=== PATIENT | female | born 1930 | race Caucasian/White ===

== ENCOUNTER 2017-05-20 15:07 | Inpatient (IN) | payer MEDICARE, BC ==
[~2017-05-20] VITALS: Ht 152.4 cm; Wt 59.0 kg
[~2017-05-20 15:07] MED LIST: ALBU8.5H6 IH; ALEN70TA3 PO; AMLO10TA4 PO; ASPI-630 PO; CALC500T30 PO; CEFU500T46 PO; COMBIGAN EYE EACHEYE; CRAN200C2 PO; FISH1CAP PO; FLUT12AE IH; GLUC1TAB71 PO; MULT-208 PO; OMEP40CA5 PO; SALM50DI IH; SERVENT; TIOT18CA IH; TRAM50TA PO; VIT1TABL32 PO; VITA1TAB PO; vitamin e PO
[2017-05-20] MEDS ORDERED: NITROGLYCERIN SUBLINGUAL 0.4 MG BOTTLE OF 25. SL PRN ×2 (15:15→17:00)
--- NOTE | 2017-05-20 15:26 | PHYS DOC ---
General Chief Complaint: CHEST PAIN Stated Complaint: C.P., SOA Time Seen by MD: 15:14 Source: patient, EMS, [facility] records Exam Limitations: clinical condition Problems: History of Present Illness Initial Comments Patient is an 86-year-old female sent to the emergency department via EMS from [facility] for respiratory distress. [facility] staff called to advise ED staff that the patient was in route, they state that 30 minutes prior to calling EMS the patient desatted acutely to 88% on RA, improved to 93% 6L NC. Patient had severe dyspnea on arrival and history obtained once she was stabilized. She reports that she's had a worsening cough and dyspnea on exertion for the past 2 days, she states that prior to coming in today she was sitting on the edge of her bed putting her pants on when she experienced sudden onset severe dyspnea with chest discomfort. She denies any recent fever chills or productive cough she does admit that her lower extremity edema has worsened the past couple of days as well. No nausea vomiting diaphoresis no arm or neck symptoms no lightheadedness or dizziness. Patient has DNR Timing/Duration: 1/2 hour Severity: severe Modifying Factors: worse with movement, improves with rest, improves with other Associated Symptoms: chest pain, cough, shortness of breath Allergies: Coded Allergies: No Known Allergies (Unverified Allergy, Unknown, 06/24/14) Past Medical History Medical History: COPD, hypertension, other (chronic pain, generalized weakness , osteoporosis, GERD, anxiety, glaucoma, UTI, hypokalemia, difficulty walking, respiratory distress O2 dependent) Surgical History: noncontributory Family History Significant Family History: no pertinent family hx Social History Smoker: quit greater than 1 year (patient states she smoked one pack daily for 35 years, states she quit smoking 35 years ago) Alcohol: none Drugs: none Review of Systems Constitutional: denies chills, denies diaphoresis, denies fever, malaise Respiratory: see HPI Cardiovascular: see HPI, chest pain, denies palpitations, denies syncope Gastrointestinal: denies abdominal pain, denies diarrhea, denies nausea, denies vomiting Genitourinary: denies dysuria, denies frequency, denies hematuria Musculoskeletal: see HPI, muscle pain, muscle stiffness, denies neck pain Psychiatric/Neurological: denies headache, denies numbness, denies paresthesia Hematologic/Lymphatic: denies blood clots, denies easy bleeding, denies easy bruising Physical Exam General Appearance: WD/WN, moderate distress Ear, Nose, Throat: hearing grossly normal, normal ENT inspection, normal pharynx Neck: non-tender, full range of motion, supple Respiratory: chest non-tender, other (globally decreased breath sounds with wheezes, accessory muscle use and respiratory distress) Cardiovascular: normal peripheral pulses, regular rate, rhythm, other (2+ pitting lower extremity edema involving the lower legs) Gastrointestinal: normal bowel sounds, non tender, soft Back: normal inspection, no CVA tenderness, no vertebral tenderness Extremities: normal range of motion, non-tender, no calf tenderness, pelvis stable Neurologic/Psychiatric: 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 Repeat EKG once patient stabilized. Interpreted by Dr. Marshall. PATIENT: ELAINE BELCHER ACCOUNT: [id number] : 1930 LOCATION: ER AGE: 86 SEX: F EXAM STATUS: REG ER ORD. PHYSICIAN: DOMINICK MARSHALL DO REASON: respiratory distress PROCEDURE: PORTABLE CHEST 1V Portable AP sitting view CXR: Clinical indications: Respiratory distress. Comparison: March 27, 2010 Findings: Old granulomatous disease is seen. No acute lung infiltrate or pleural effusion or pulmonary edema or lung mass or pneumothorax is seen. A hiatal hernia is evident. The heart size, pulmonary vasculature, mediastinum and both corina are otherwise unremarkable. Impression: No acute radiographic abnormality is seen. DICTATED AND SIGNED BY: SABINO MORSE MD DATE: 05/20/17 154 CC: MARIAN SHETH MD; DOMINICK MARSHALL DO ~ ABG: PH 7.42, PCO2 39.2, PO2 58, oxygen saturation 90% on 5 L O2 nasal cannula ED labs are unremarkable, no urine submitted yet and the studies remain pending. Although patient's O2 sat and ABG are fairly unremarkable the patient continues to work hard with labored breathing and I fear she may get tired and decompensated. Her condition improves with nonrebreather respiration rate improves from mid 30s to 18, oxygen saturation improves to 98-99%. In addition O2 patient did receive Solu-Medrol 125 mg IV and Lasix 20 mg IV shortly after arrival, she refused aspirin by mouth. Once stabilized low-dose morphine 2 mg sequential when necessary dosing initiated. 1645: Patient follows with Dr. Sheth is her PCP. I discussed the patient with emergency management consultant hospitalist Dr. Boucher. After thorough discussion of patient's history, presentation, ED results and course he is agreeable that patient should be admitted to the ICU as an inpatient for further respiratory support, to follow her labs, and control her symptoms. Patient is agreeable. Impressions: Respiratory distress COPD exacerbation Chest pain Hypovolemia Departure Time of Disposition: 16:57 Disposition: 09 ADMITTED INPATIENT Diagnosis: respiratory distress, COPD exacerbation, chest calos Condition: IMPROVED Additional Instructions: ICU admission Dr. Boucher is accepting DOMINICK MARSHALL DO May 20, 2017 15:26
[2017-05-20] MEDS ORDERED: ASPIRIN 81 MG TAB.CHEW PO ONE (15:30)
[2017-05-20] MEDS ORDERED: IPRATRPIUM/ALBUTEROL 0.5/2.5MG 3 ML NEBU. NEB ONE (15:30)
[2017-05-20] MEDS ORDERED: methylPREDNISolone SOD SUCC PF 125 MG/2 ML VIAL. IV ONE (15:30)
--- NOTE | 2017-05-20 15:45 | RAD ---
Portable AP sitting view CXR: Clinical indications: Respiratory distress. Comparison: March 27, 2010 Findings: Old granulomatous disease is seen. No acute lung infiltrate or pleural effusion or pulmonary edema or lung mass or pneumothorax is seen. A hiatal hernia is evident. The heart size, pulmonary vasculature, mediastinum and both corina are otherwise unremarkable. Impression: No acute radiographic abnormality is seen.
[2017-05-20 16:00] LABS: BASO # 0.1 x10^3/uL (0.0-0.2); BASO % 1 % (0-3); EOS # 0.1 x10^3/uL (0.0-0.7); EOS % 1 % (0-3); HEMATOCRIT 40.9 % (36.0-47.0); LYMPH # 2.6 x10^3/uL (1.0-4.8); LYMPH % 25 % (24-48); MEAN CORPUSCULAR HEMOGLOBIN 32 pg (25-35); MEAN CORPUSCULAR HGB CONC 34 g/dL (31-37); MEAN CORPUSCULAR VOLUME 92 fL (79-100); MONO # 0.8 x10^3/uL (0.0-1.1); MONO % 8 % (0-9); NEUT # 6.9 x10^3uL (1.8-7.7); NEUT % 66 % (31-73); PLATELET COUNT 240 x10^3/uL (140-400); RED BLOOD COUNT 4.45 x10^6/uL (3.50-5.40); RED CELL DISTRIBUTION WIDTH 14.6 % (11.5-14.5); WHITE BLOOD COUNT 10.6 x10^3/uL (4.0-11.0)
[2017-05-20 16:01] LABS: BGAS PH 7.42 (7.35-7.45)
[2017-05-20] MEDS ORDERED: FUROSEMIDE 40 MG/4 ML VIAL IVP ONE (16:15)
[2017-05-20 16:17] LABS: CALCIUM 9.3 mg/dL (8.5-10.1); CREATININE 0.6 mg/dL (0.6-1.0); POTASSIUM 4.2 mmol/L (3.5-5.1); TOTAL BILIRUBIN 0.7 mg/dL (0.2-1.0)
[2017-05-20] MEDS ORDERED: MORPHINE SULFATE 2 MG/ML DISP.SYRIN. IV/SQ PRN (16:30)
[2017-05-20] MEDS ORDERED: ACETAMINOPHEN 325 MG TABLET PO PRN (17:00)
[2017-05-20] MEDS ORDERED: MORPHINE SULFATE 2 MG/ML DISP.SYRIN. IV PRN (17:00)
[2017-05-20] MEDS ORDERED: ONDANSETRON PF 4 MG/2 ML VIAL. IV PRN (17:00)
[2017-05-20 19:00] VITALS: BP 114/77
--- NOTE | 2017-05-20 19:15 | NUR ---
Pt admitted from ER via EMS for Exac COPD. Pt presents A&O, denies complaints of pain. Family at beside. Pt currently on 10L NRB facemask, sats 99%. Pt still experiencing moderate SOA, from exertion of transferring. Oriented pt to unit, nurse, call light, and plan of care. V/U stated. Will monitor pt closely.
[2017-05-20] MEDS: IPRATRPIUM/ALBUTEROL 0.5/2.5MG 3 ML NEBU. NEB SCH (20:48)
--- NOTE | 2017-05-20 21:05 | EKG ---
[address] [address] Test Date: 2017-05-20 Test Time: 15:15:40 Pat Name: ELAINE BELCHER Department: Room: [facility] 1 Gender: F Senior Project Accountant: GUERO : 1930 Requested By: DOMINICK MARSHALL Order Number: [id number] Reading MD: Carlos Manuel Kuhn MD Measurements Intervals [place] Rate: 72 P: ND: QRS: 21 QRSD: 94 T: -24 QT: 384 QTc: 422 Interpretive Statements SR Electronically Signed On 05-23-2017 10:56:45 SALMON GILLNET VESSEL OPERATOR by Carlos Manuel Kuhn MD
[2017-05-20 21:30] VITALS: BP 113/66
[2017-05-20 23:41] VITALS: BP 142/66
[2017-05-21] VITALS (20 sets, daily range): BP systolic 119–152; BP diastolic 55–102
[2017-05-21 04:28] LABS: BASO % 0 % (0-3); EOS % 0 % (0-3); HEMATOCRIT 39.3 % (36.0-47.0); HEMOGLOBIN 13.5 g/dL (12.0-15.5); LYMPH # 1.6 x10^3/uL (1.0-4.8); LYMPH % 21 % (24-48); MEAN CORPUSCULAR HEMOGLOBIN 32 pg (25-35); MEAN CORPUSCULAR HGB CONC 34 g/dL (31-37); MEAN CORPUSCULAR VOLUME 93 fL (79-100); MONO # 0.2 x10^3/uL (0.0-1.1); MONO % 3 % (0-9); NEUT # 5.8 x10^3uL (1.8-7.7); NEUT % 76 % (31-73); PLATELET COUNT 198 x10^3/uL (140-400); RED BLOOD COUNT 4.25 x10^6/uL (3.50-5.40); RED CELL DISTRIBUTION WIDTH 13.8 % (11.5-14.5); WHITE BLOOD COUNT 7.6 x10^3/uL (4.0-11.0)
[2017-05-21 04:30] LABS: CALCIUM 9.1 mg/dL (8.5-10.1); CREATININE 0.7 mg/dL (0.6-1.0); GFR 79.5; POTASSIUM 4.2 mmol/L (3.5-5.1)
[2017-05-21] MEDS: IPRATRPIUM/ALBUTEROL 0.5/2.5MG 3 ML NEBU. NEB SCH ×4 (05:45→20:48)
[2017-05-21] MEDS: methylPREDNISolone SOD SUCC PF 125 MG/2 ML VIAL. IV SCH ×4 (05:49→20:51)
[2017-05-21] MEDS: IV NORMAL SALINE 1,000ML 1,000 ML IV SCH ×3 (05:50→20:52)
[2017-05-21] MEDS ORDERED: NON FORMULARY ITEM (Cranberry Extract (Cranberry) 200 MG) PO SCH (09:00)
[2017-05-21] MEDS: ASPIRIN 81 MG TAB.CHEW PO SCH (09:07)
[2017-05-21] MEDS: GLUCOSAMINE 500 MG CAPSULE PO SCH (09:08)
[2017-05-21] MEDS: PANTOPRAZOLE 40 MG TABLET. PO SCH (09:08)
[2017-05-21] MEDS: MULTIVITAMIN with MINERAL TABLET. PO SCH (09:08)
[2017-05-21] MEDS: CALCIUM CARBONATE 500 MG TABLET PO SCH (09:08)
[2017-05-21] MEDS: amLODIPine BESYLATE 10 MG TABLET PO SCH (09:09)
[2017-05-21] MEDS: traMADol 50 MG TABLET PO PRN ×2 (11:19→23:05)
[2017-05-21] MEDS ORDERED: IOHEXOL 300 MG/ML 75 ML VIAL. IV ONE (14:00)
[2017-05-21 14:11] LABS: BILIRUBIN,URINE NEG (NEG); CLARITY,URINE TURBID; COLOR,URINE YELLOW; GLUCOSE,URINE NEG (NEG); NITRITE,URINE POS (NEG); UROBILINOGEN,URINE 0.2 mg/dL (0.2 mg/dL)
[2017-05-21 14:12] LABS: BACTERIA,URINE MANY /HPF (0-FEW); SQUAMOUS EPITHELIAL CELL,UR FEW /LPF
--- NOTE | 2017-05-21 14:28 | HP ---
ADMIT DATE: 05/20/2017 HISTORY OF PRESENT ILLNESS: This is an 86-year-old female patient who is a resident at [facility] who was brought to the Emergency Room by emergency medical services for acute respiratory distress. Apparently, the patient has been complaining of worsening cough and dyspnea on exertion for the past 2 days. Nursing staff at the facility stated that her oxygen saturation dropped to 88% on room air and improved to 93% on 6 liters of oxygen by nasal cannula. By the time she arrived to the Emergency Room, she has severe dyspnea on arrival and the history was only obtained after she was stabilized. She reports that prior to coming to the Emergency Room, she was sitting on the edge of the bed, putting her pants on when she experienced sudden onset of severe dyspnea with chest discomfort. She denied any recent fever, chills or productive cough, but admits that her lower extremity edema has worsened in the last couple of days as well. No nausea, vomiting, diaphoresis. No arm or neck pain, no lightheadedness or dizziness. She was evaluated in the Emergency Room and was admitted with acute hypoxic respiratory failure, COPD exacerbation and was started on IV Solu-Medrol and was continued on her nebulized albuterol and Atrovent as well as her pain medication. Her white cell count was normal with no evidence of leukocytosis. She was afebrile. Her kidney function was unremarkable and her chest x-ray showed old granulomatous disease seen, no acute lung infiltrate, pleural effusion, no pulmonary edema, lung masses or pneumothorax seen; hiatal hernia is evident, heart size, pulmonary vasculature, mediastinal and both corina are otherwise unremarkable. No acute radiographic abnormalities seen. PAST MEDICAL HISTORY: Significant for chronic obstructive pulmonary disease, hypertension, generalized osteoarthritis, osteoporosis, as well as glaucoma. She has history of falls with right clavicular fracture treated conservatively with a sling. PAST SURGICAL HISTORY: Significant for bilateral cataract extraction, tonsillectomy, left mastectomy, total abdominal hysterectomy and bilateral salpingo-oophorectomy. ALLERGIES: She has no known drug allergies. MEDICATIONS: She is currently on the following medications: Alendronate sodium 70 mg once a week, amlodipine besylate 10 mg once a day, aspirin 81 mg once a day, calcium carbonate 500 mg daily, cranberry extract 200 mg daily, glucosamine, vitamin D and boswellia for Osteo Bi-Flex 1 tablet once a day, multivitamin 1 tablet once a day, omeprazole 40 mg once a day, salmeterol Xinafoate, Serevent Diskus 1 inhalation once a day, Spiriva HandiHaler 1 inhalation once a day and tramadol 50 mg every 4 hours as needed. FAMILY HISTORY: The patient has 3 sisters, one sister had coronary artery disease and she is morbidly obese, one sister underwent knee and hip replacement. The younger sister is seemingly healthy. Her father in his 70s and mother in her 60s due to uterine cancer. SOCIAL HISTORY: She is . She has 1 daughter and 2 sons. She is currently living with her daughter. She goes to [place] in wintertime. She lives actually with her sister there in a trailer park and comes back usually at the end of November and lives here with her daughter. She is an ex-smoker, quit in 1981. She smoked for 35 years, 1 pack a day. She does not drink alcohol. She worked for [employer] for 33 years. REVIEW OF SYSTEMS: The patient denied any blurring of vision. She had bilateral cataract extractions and has glaucoma; however, she denied any earache, tinnitus or sensorineural deafness. Denied any nosebleeds, stuffy nose or postnasal drip. Denied any sore throat, sore tongue, toothache, hoarseness of voice or difficulty swallowing. She denied any nausea, vomiting, diarrhea or constipation. Denied any hematemesis, melena or hematochezia. Denied any dysuria, frequency or hematuria. Denied any chest pain. Did complain of shortness of breath, cough, which is mostly dry as well as acute onset back pain. PHYSICAL EXAMINATION: GENERAL: On examining her, she looked well after she arrived to the ICU; however, she was definitely tachypneic, hypoxic and required 6 liters of oxygen to maintain her oxygen saturation above 90. She was pale, somewhat cachectic, but no jaundice, cyanosis or thyromegaly. No jugular venous distension. No lower limb edema. VITAL SIGNS: Her heart rate was 70, blood pressure of 145/85, temperature was 99.3, respiratory rate 26, and oxygen saturation was 94% in fact it was 89% on 4 liters of oxygen and required 6 liters to improve it more than 90. HEAD, EYES, EARS, NOSE AND THROAT: Showed normocephalic, atraumatic. NECK: Supple. HEART: Showed normal first and second heart sounds with no gallop, rub or murmur. CHEST: Clear to auscultation. No crepitation or rhonchi. ABDOMEN: Distended, soft, nontender. No guarding or rigidity. No organomegaly. All hernial orifices are intact. Bowel sounds normal. NEUROLOGIC: She was awake, alert, responding appropriately. All cranial nerves are intact. EXTREMITIES: She moves extremities without difficulty. She does have problems sitting up from a lying position that aggravates the pain. LABORATORY DATA: On arrival to the Emergency Room showed a white cell count of 10,600, hemoglobin 14, hematocrit 41, MCV 92, and platelet count 240,000 with a manual differential showed 66% polymorphs, 25% lymphocytes and 8% monocytes. Her chemistry showed a serum sodium 137, potassium 4.2, chloride 100, bicarbonate 29, anion gap of 8, BUN 20, creatinine was 0.6, estimated GFR was 95 mL per minute. Her glucose 113, calcium was 9.3. Total bilirubin, AST, ALT, alkaline phosphatase were normal. Her beta natriuretic peptide was 130. Total protein 8, albumin 4. Her first set of cardiac enzymes showed troponin to be less than 0.017. Her blood gases showed a pH of 7.42, pCO2 of 39, pO2 of 58, bicarbonate 25, and oxygen saturation was 90% on FiO2 of 36%. Her prothrombin time was 11.6, INR of 1.1, aPTT was 22. IMAGING: As stated her chest x-ray showed that she has no acute radiographic abnormalities seen. ASSESSMENT AND PLAN: 1. The patient was admitted after she received Solu-Medrol and nebulized treatment as well as furosemide and morphine. We will obviously monitor her closely, continue all her home medications and decide on further management accordingly. ADMITTING DIAGNOSES: 1. Acute hypoxic respiratory failure. 2. Chronic obstructive pulmonary disease exacerbation. 3. Back pain in a patient who has severe osteoarthritis and osteoporosis. LEORA ELY MD DR: NATHANAEL/mary JOB#: [id number] / [id number]
--- NOTE | 2017-05-21 16:03 | RAD ---
CTA OF THE CHEST WITH AND WITHOUT CONTRAST Clinical indications: Sudden onset of chest pain with shortness of breath today. Technique: Noncontrast axial localizer was performed. After IV infusion of 75 cc of Omnipaque 300, helical CT scanning of the chest was performed using the CT pulmonary embolism protocol. A coronal MIP reconstruction was generated. PQRS compliance Statement One or more of the following individualized dose reduction techniques were utilized for this study: 1. Automated exposure control 2. Adjustment of the mA and/or kV according to patient size 3. Use of iterative reconstruction technique Comparison: No previous chest CT available. Findings: No pulmonary embolism is evident. No focal aneurysmal dilatation or dissection of the thoracic aorta is seen. The heart size is normal and no pericardial effusion is seen. A moderate-sized hiatal hernia is present. There is wall thickening of the esophagus which may be secondary to reflux esophagitis. No enlarged thoracic lymphadenopathy is seen otherwise. Calcified granuloma in the posterior segment of the left upper lobe is seen. No lung mass is evident. There is a small infiltrate within the posterior segment of the right lower lobe. No pleural effusion is seen. No pneumothorax is evident. The proximal bronchial tree is patent. No adrenal mass is evident. No osteolytic process is seen. There are mild compression fractures of T7 and T9. There is a moderate compression fracture of L1 which has been treated with a vertebroplasty. IMPRESSION: No pulmonary embolism. Posterior right lower lobe lung infiltrate. Moderate-sized hiatal hernia. Mild compression fracture of T7 which is new since the MRI study of the thoracic spine dated July 22, 2014. Stable old compression fracture of T9. There is a compression fracture of L1 which has been treated with a vertebroplasty. This was not seen in 2015. Electronically signed by: Yfn English MD (05/21/2017 3:59 PM) [facility]
[2017-05-21] MEDS: LACTOBACILLUS RHAMNOSUS GG 1 CAPSULE. PO SCH (20:51)
[2017-05-22] VITALS (15 sets, daily range): BP systolic 111–155; BP diastolic 47–91
[2017-05-22] MEDS: methylPREDNISolone SOD SUCC PF 125 MG/2 ML VIAL. IV SCH (05:27)
[2017-05-22] MEDS: IPRATRPIUM/ALBUTEROL 0.5/2.5MG 3 ML NEBU. NEB SCH ×4 (05:32→20:28)
[2017-05-22] MEDS ORDERED: IV NORMAL SALINE 1,000ML 1,000 ML IV SCH (05:45)
[2017-05-22 06:36] LABS: HEMATOCRIT 36.7 % (36.0-47.0); HEMOGLOBIN 12.4 g/dL (12.0-15.5); RED BLOOD COUNT 3.95 x10^6/uL (3.50-5.40); RED CELL DISTRIBUTION WIDTH 13.9 % (11.5-14.5); WHITE BLOOD COUNT 12.3 x10^3/uL (4.0-11.0)
[2017-05-22 06:42] LABS: ALBUMIN 3.2 g/dL (3.4-5.0); CALCIUM 8.6 mg/dL (8.5-10.1); CREATININE 0.6 mg/dL (0.6-1.0); POTASSIUM 4.1 mmol/L (3.5-5.1); TOTAL BILIRUBIN 0.3 mg/dL (0.2-1.0); TOTAL PROTEIN 6.5 g/dL (6.4-8.2)
--- NOTE | 2017-05-22 07:17 | PN ---
DATE: 05/21/2017 SUBJECTIVE: The patient is resting, slightly propped up in bed, in no apparent respiratory distress. On questioning her, she continued to have some shortness of breath, dry cough; however, her main complaint is back pain which she is getting worse whenever she attempts to get up from the lying position, mostly around the lower thoracic spine across her chest. Denied any hemoptysis. Denied any dizziness, lightheadedness, or vertigo. Denied any fall. She has severe osteoporosis, osteoarthritis and last time, she fell and broke her right clavicle that was treated conservatively and she actually presented yesterday with sudden onset of severe chest pain and worsening shortness of breath. OBJECTIVE: GENERAL: When I examined her this afternoon, she looked well and was clearly in no apparent respiratory distress, pale, somewhat cachectic, but no jaundice, cyanosis, lymphadenopathy, or thyromegaly. No jugular venous distension. No lower limb edema. VITAL SIGNS: Her heart rate was 81, blood pressure 152/71, temperature was 98, respiratory rate was 16, and oxygen saturation was 95% on 2 liters of oxygen. HEAD, EYES, EARS, NOSE AND THROAT: Showed normocephalic, atraumatic. NECK: Supple. HEART: Showed normal first and second heart sounds with no gallop, rub or murmur. CHEST: Clear to auscultation. No crepitation or rhonchi. ABDOMEN: Distended, soft, nontender. No guarding or rigidity. No organomegaly. Hernial orifices intact. Bowel sounds normal. NEUROLOGIC: She is awake, alert, responding appropriately. Cranial nerves intact. She moves extremities without difficulty. She has marked tenderness at lower thoracic spine. Her intake and output are incompletely recorded. LABORATORY DATA: Her lab work this morning showed that her white cell count was 7600, hemoglobin 13.5, hematocrit 39, MCV 93, and platelet count of 198,000. Her chemistry this morning showed that her serum sodium was 141, potassium 4.2, chloride 102, bicarbonate 30, anion gap of 9, BUN 26, creatinine 0.7, estimated GFR was 79 mL per minute. Her glucose was 137, calcium was 9.1. She has 3 sets of cardiac enzymes that were negative. ASSESSMENT: 1. This is an 86-year-old female patient who was admitted with acute hypoxic hypercapnic respiratory failure. 2. Chronic obstructive pulmonary disease exacerbation. 3. Sudden onset of severe lower thoracic spine pain which is aggravated by movement. She has severe osteoarthritis and osteoporosis. PLAN: My plan is to continue with current management in the form of steroids and bronchodilators together with all her medication. I will arrange for her to have a CT scan of the chest with PE protocol and that will exclude obviously the pulmonary embolism dissecting aneurysm and hopefully also if there is any compression fracture. LEORA ELY MD DR: NATHANAEL/mary JOB#: [id number] / [id number]
[2017-05-22] MEDS: PANTOPRAZOLE 40 MG TABLET. PO SCH (07:56)
[2017-05-22] MEDS: MULTIVITAMIN with MINERAL TABLET. PO SCH (08:42)
[2017-05-22] MEDS: ASPIRIN 81 MG TAB.CHEW PO SCH (08:43)
[2017-05-22] MEDS: LACTOBACILLUS RHAMNOSUS GG 1 CAPSULE. PO SCH ×2 (08:43→21:09)
[2017-05-22] MEDS: CALCIUM CARBONATE 500 MG TABLET PO SCH (08:43)
[2017-05-22] MEDS: amLODIPine BESYLATE 10 MG TABLET PO SCH (08:43)
[2017-05-22] MEDS: GLUCOSAMINE 500 MG CAPSULE PO SCH (08:44)
[2017-05-22] MEDS ORDERED: MORPHINE SULFATE 2 MG/ML DISP.SYRIN. IV PRN (09:00)
[2017-05-22] MEDS: AZITHROMYCIN 250 MG TABLET. PO SCH (11:27)
[2017-05-22] MEDS: POLYETHYLENE GLYCOL 3350 17 GM PACKET. PO SCH (11:27)
[2017-05-22] MEDS: LIDOCAINE (700MG/PATCH) PATCH. TD SCH (11:27)
[2017-05-22] MEDS: oxyCODONE IR 5 MG TABLET PO PRN ×2 (11:27→19:09)
[2017-05-22] MEDS: methylPREDNISolone SOD SUCC PF 40 MG/ML VIAL. IV SCH (21:09)
[2017-05-22] MEDS: DOCUSATE SODIUM 100 MG CAPSULE PO SCH (21:09)
[2017-05-23] MEDS: oxyCODONE IR 5 MG TABLET PO PRN (00:47)
[2017-05-23 03:45] VITALS: BP 51/84
--- NOTE | 2017-05-23 03:52 | PN ---
DATE: 05/22/2017 SUBJECTIVE: The patient is resting, slightly propped up in bed, in no apparent respiratory distress. She continued to complain of back pain. We did a CT scan of the chest with PE protocol, which basically showed that it was negative for pulmonary emboli. She did have posterior right lower lobe lung infiltrate, moderate-sized hiatal hernia; however, she has mild compression and fracture of T7, which is new since the MRI study of the thoracic spine dated 07/22/2014. She has stable old compression fracture of T9. There is a compression fracture of L1, which has been treated with vertebroplasty. PHYSICAL EXAMINATION: GENERAL: When I examined her, she looked well, slightly pale, but no jaundice, cyanosis, or thyromegaly. No jugular venous distention. No limb edema. VITAL SIGNS: Her heart rate was 71, blood pressure was 137/68, temperature was 98.4, respiratory rate was 20 and oxygen saturation was 97% on 3 liters of oxygen by nasal cannula. HEAD, EYES, EARS, NOSE AND THROAT: Showed normocephalic, atraumatic. NECK: Supple. HEART: Showed normal first and second heart sounds with no gallop, rub or murmur. CHEST: Shows central trachea, equally reduced expansion, reduced air entry, vesicular sounds. No crepitation or rhonchi. ABDOMEN: Distended, soft, nontender. No guarding or rigidity. No organomegaly. Hernial orifices intact. Bowel sounds normal. NEUROLOGIC: She was awake, alert, responding appropriately. Cranial nerves intact. She moves extremities without difficulty. Her intake over the last 24 hours was 3000, output was 1000. LABORATORY DATA: As of this morning showed a white cell count of 12,300, hemoglobin 12.4, hematocrit 36.7, MCV 93 and platelet count of 179,000. Her chemistry showed serum sodium of 142, potassium 4.1, chloride 106, bicarbonate 29, anion gap of 7, BUN 24, creatinine 0.6. Estimated GFR was 95 mL per minute. Her glucose was 135. Calcium was 8.6. Total bilirubin, AST, ALT, alkaline phosphatase were normal. Total protein was 6.5, albumin 3.2. ASSESSMENT: 1. Acute hypoxic hypercapnic respiratory failure. 2. Chronic obstructive pulmonary disease exacerbation. 3. Right lower lobe infiltrate. 4. Severe lower thoracic spine pain, aggravated by movement, found to be due to new T7 compression fracture. 5. Osteoporosis. 6. Severe osteoarthritis. PLAN: To use Lidoderm patch topically to the lower thoracic area, start her also on oxycodone 5 mg every 4 hours as needed, add Zithromax to her antibiotic therapy as we did start her yesterday on Rocephin for UTI. I cut down her prednisone to 40 mg IV twice a day. Plan to transfer her tomorrow to [facility] for an MRI of her thoracic spine and to consult the interventional radiologist for vertebroplasty if feasible. LEORA ELY MD DR: NATHANAEL/mary JOB#: [id number] / [id number]
[2017-05-23] MEDS: IPRATRPIUM/ALBUTEROL 0.5/2.5MG 3 ML NEBU. NEB SCH ×2 (05:47→09:16)
[2017-05-23 08:00] VITALS: BP 161/84
[2017-05-23] MEDS: methylPREDNISolone SOD SUCC PF 40 MG/ML VIAL. IV SCH (08:38)
[2017-05-23] MEDS: POLYETHYLENE GLYCOL 3350 17 GM PACKET. PO SCH (08:38)
[2017-05-23] MEDS: MULTIVITAMIN with MINERAL TABLET. PO SCH (08:38)
[2017-05-23] MEDS: LACTOBACILLUS RHAMNOSUS GG 1 CAPSULE. PO SCH (08:38)
[2017-05-23] MEDS: ASPIRIN 81 MG TAB.CHEW PO SCH (08:38)
[2017-05-23 08:39] VITALS: BP 161/84
[2017-05-23] MEDS: amLODIPine BESYLATE 10 MG TABLET PO SCH (08:39)
[2017-05-23] MEDS: PANTOPRAZOLE 40 MG TABLET. PO SCH (08:39)
[2017-05-23] MEDS: DOCUSATE SODIUM 100 MG CAPSULE PO SCH (08:39)
[2017-05-23] MEDS: CALCIUM CARBONATE 500 MG TABLET PO SCH (08:39)
[2017-05-23] MEDS: AZITHROMYCIN 250 MG TABLET. PO SCH (08:39)
[2017-05-23] MEDS: GLUCOSAMINE 500 MG CAPSULE PO SCH (08:40)
[2017-05-23] MEDS: LIDOCAINE (700MG/PATCH) PATCH. TD SCH (08:41)
--- NOTE | 2017-05-23 10:42 | PDOC3 ---
Discharge Summary Visit Information Date of Admission: May 20, 2017 Date of Discharge: May 23, 2017 Final Diagnosis ENT: 1. Acute hypoxic hypercapnic respiratory failure. 2. Chronic obstructive pulmonary disease exacerbation. 3. Right lower lobe infiltrate. 4. Severe lower thoracic spine pain, aggravated by movement, found to be due to new T7 compression fracture. 5. Osteoporosis. 6. Severe osteoarthritis. Problems: Brief Hospital Course Allergies Allergies Coded Allergies Type Severity Reaction Last Updated Verified No Known Allergies Allergy Unknown 06/24/14 No Vital Signs Vital Signs Date Time Temp Pulse Resp B/P (MAP) Pulse Ox O2 Delivery O2 Flow Rate FiO2 05/23/17 09:17 91 Nasal Cannula 2.0 05/23/17 08:39 91 161/84 05/23/17 08:00 98.9 20 Lab Results Laboratory Tests Test 05/21/17 12:15 05/22/17 06:18 Urine Collection Type Unknown Urine Color Yellow Urine Clarity Turbid Urine pH 5.5 Urine Specific [place] 1.020 Urine Protein Trace (NEG-TRACE) Urine Glucose (UA) Neg mg/dL (NEG) Urine Ketones (Stick) 15 mg/dL (NEG) Urine Blood Neg (NEG) Urine Nitrite Pos (NEG) Urine Bilirubin Neg (NEG) Urine Urobilinogen Dipstick 0.2 mg/dL (0.2 mg/dL) Urine Leukocyte Esterase Neg (NEG) Urine RBC 1-2 /HPF (0-2) Urine WBC 11-20 /HPF (0-4) Urine Squamous Epithelial Cells Few /LPF Urine Transitional Epithelial Cells Few /LPF Urine Bacteria Many /HPF (0-FEW) Urine Mucus Slight /LPF White Blood Count 12.3 x10^3/uL (4.0-11.0) Red Blood Count 3.95 x10^6/uL (3.50-5.40) Hemoglobin 12.4 g/dL (12.0-15.5) Hematocrit 36.7 % (36.0-47.0) Mean Corpuscular Volume 93 fL (79-100) Mean Corpuscular Hemoglobin 31 pg (25-35) Mean Corpuscular Hemoglobin Concent 34 g/dL (31-37) Red Cell Distribution Width 13.9 % (11.5-14.5) Platelet Count 179 x10^3/uL (140-400) Sodium Level 142 mmol/L (136-145) Potassium Level 4.1 mmol/L (3.5-5.1) Chloride Level 106 mmol/L (98-107) Carbon Dioxide Level 29 mmol/L (21-32) Anion Gap 7 (6-14) Blood Urea Nitrogen 24 mg/dL (7-20) Creatinine 0.6 mg/dL (0.6-1.0) Estimated GFR (Cockcroft-Gault) 95.0 BUN/Creatinine Ratio 40 (6-20) Glucose Level 135 mg/dL (70-99) Calcium Level 8.6 mg/dL (8.5-10.1) Total Bilirubin 0.3 mg/dL (0.2-1.0) Aspartate Amino Transf (AST/SGOT) 13 U/L (15-37) Alanine Aminotransferase (ALT/SGPT) 16 U/L (14-59) Alkaline Phosphatase 46 U/L (46-116) Total Protein 6.5 g/dL (6.4-8.2) Albumin 3.2 g/dL (3.4-5.0) Albumin/Globulin Ratio 1.0 (1.0-1.7) Brief Hospital Course Ms. Vale is a 86 old [sex] who presented with [ ] HISTORY OF PRESENT ILLNESS: This is an 86-year-old female patient who is a resident at [facility] who was brought to the Emergency Room by emergency medical services for acute respiratory distress. Apparently, the patient has been complaining of worsening cough and dyspnea on exertion for the past 2 days. Nursing staff at the facility stated that her oxygen saturation dropped to 88% on room air and improved to 93% on 6 liters of oxygen by nasal cannula. By the time she arrived to the Emergency Room, she has severe dyspnea on arrival and the history was only obtained after she was stabilized. She reports that prior to coming to the Emergency Room, she was sitting on the edge of the bed, putting her pants on when she experienced sudden onset of severe dyspnea with chest discomfort. She denied any recent fever, chills or productive cough, but admits that her lower extremity edema has worsened in the last couple of days as well. No nausea, vomiting, diaphoresis. No arm or neck pain, no lightheadedness or dizziness. She was evaluated in the Emergency Room and was admitted with acute hypoxic respiratory failure, COPD exacerbation and was started on IV Solu-Medrol and was continued on her nebulized albuterol and Atrovent as well as her pain medication. SHE WAS FOUND TO HAVE A T7 COMPRESSION FRACTURE AND HAD CONSIDERABLE PAIN DURING. HER HOSPITALIZATION. ALSO FOUND TO HAVE A LLL INFILTRATE. SHE WILL BE TRANSFERRED TO [facility] FOR AN MRI AND POSSIBLE VETEBROPLASTY. HER OTHER PROBLEMS ARE STABLE AT THIS TIME. Discharge Information Condition at Discharge: Stable Disposition/Orders: D/C to Another Facility Dischare Medications Current Medications Aspirin (Children'S Aspirin) 324 mg 1X ONCE PO ; Start 05/20/17 at 15:30; Stop 05/20/17 at 15:31; Status DC Nitroglycerin (Nitrostat) 0.4 mg PRN Q5MIN PRN SL CP RATING > 1/10 Last administered on 05/20/17 16:00; Start 05/20/17 at 15:15; Stop 05/21/17 at 15 :14; Status DC Albuterol/ Ipratropium (Duoneb) 3 ml 1X ONCE NEB Last administered on 15:25; Start 05/20/17 at 15:30; Stop 05/20/17 at 15:31; Status DC Methylprednisolone Sodium Succinate (SOLU-Medrol 125MG VIAL) 125 mg 1X ONCE IV Last administered on 05/20/17 15:49; Start 05/20/17 at 15:30; Stop at 15:31; Status DC Furosemide (Lasix) 20 mg 1X ONCE IVP Last administered on 05/20/17 15:59; Start 05/20/17 at 16:15; Stop 05/20/17 at 16:16; Status DC Morphine Sulfate (Morphine 2mg Syringe) 2 mg PRN Q15MIN PRN IV/SQ PAIN GREATER THAN 3/10 Last administered on 05/20/17 16:50; Start 05/20/17 at 16:30; Stop 05/20/17 at 16:59; Status DC Ondansetron HCl (Zofran) 4 mg PRN Q4HRS PRN IV NAUSEA/VOMITING; Start at 17:00; Stop 05/21/17 at 16:59; Status DC Morphine Sulfate (Morphine 2mg Syringe) 2 mg PRN Q2HR PRN IV PAIN Last administered on 05/21/17 13:02; Start 05/20/17 at 17:00; Stop 05/21/17 at 16 :59; Status DC Sodium Chloride 1,000 ml @ 120 mls/hr Q8H20M IV Last administered on 20:52; Start 05/20/17 at 16:53; Stop 05/21/17 at 16:52; Status DC Acetaminophen (Tylenol) 650 mg PRN Q4HRS PRN PO FEVER; Start 05/20/17 at 17:00 ; Stop 05/21/17 at 16:59; Status DC Nitroglycerin (Nitrostat) 0.4 mg PRN Q5MIN PRN SL CHEST PAIN; Start 05/20/17 at 17:00; Stop 05/21/17 at 16:59; Status Cancel Albuterol/ Ipratropium (Duoneb) 3 ml RTQID NEB Last administered on 05/21/17 16:20; Start 05/20/17 at 20:00; Stop 05/21/17 at 16:31; Status DC Methylprednisolone Sodium Succinate (SOLU-Medrol 125MG VIAL) 125 mg Q8HRS IV Last administered on 05/21/17 05:49; Start 05/21/17 at 00:00; Stop 05/21/17 at 08:17; Status DC Amlodipine Besylate (Norvasc) 10 mg DAILY PO Last administered on 05/23/17 08 :39; Start 05/21/17 at 09:00 Aspirin (Children'S Aspirin) 81 mg DAILY PO Last administered on 05/23/17 08: 38; Start 05/21/17 at 09:00 Calcium Carbonate/ Glycine (Oscal) 500 mg DAILY PO Last administered on 08:39; Start 05/21/17 at 09:00 Tramadol HCl (Ultram) 50 mg PRN Q4HRS PRN PO PAIN Last administered on 23:05; Start 05/21/17 at 08:15 Non-Formulary Medication 200 mg DAILY PO ; Start 05/21/17 at 09:00; Stop 05/21 at 09:00; Status DC Glucosamine Sulfate (Glucosamine) 500 mg DAILY PO Last administered on 08:40; Start 05/21/17 at 09:00 Multivitamins/ Calcium (Thera-M Plus) 1 tab DAILY PO Last administered on 05/23 08:38; Start 05/21/17 at 09:00 Pantoprazole Sodium (Protonix) 40 mg DAILYAC PO Last administered on 08:39; Start 05/21/17 at 09:00 Methylprednisolone Sodium Succinate (SOLU-Medrol 125MG VIAL) 60 mg Q8HRS IV Last administered on 05/22/17 05:27; Start 05/21/17 at 14:00; Stop 05/22/17 at 11:11; Status DC Iohexol (Omnipaque 300 Mg/ml) 75 ml 1X ONCE IV Last administered on 14:57; Start 05/21/17 at 14:00; Stop 05/21/17 at 14:01; Status DC Ceftriaxone Sodium 1 gm/ Sodium Chloride 50 ml @ 100 mls/hr Q24H IV Last administered on 05/22/17 14:50; Start 05/21/17 at 15:00 Lactobacillus Rhamnosus (Culturelle) 1 cap BID PO Last administered on 08:38; Start 05/21/17 at 21:00 Albuterol/ Ipratropium (Duoneb) 3 ml RTQID NEB Last administered on 05/23/17 09:16; Start 05/21/17 at 20:00 Sodium Chloride 1,000 ml @ 120 mls/hr Q8H20M IV Last administered on 05:36; Start 05/22/17 at 05:45; Stop 05/22/17 at 11:11; Status DC Morphine Sulfate (Morphine 2mg Syringe) 2 mg PRN Q2HR PRN IV PAIN Last administered on 05/22/17 09:11; Start 05/22/17 at 09:00 Methylprednisolone Sodium Succinate (SOLU-Medrol 40MG VIAL) 40 mg BID IV Last administered on 05/23/17 08:38; Start 05/22/17 at 21:00 Lidocaine (Lidoderm) 1 patch DAILY TD Last administered on 05/23/17 08:41; Start 05/22/17 at 11:30 Oxycodone HCl (Roxicodone) 5 mg PRN Q4HRS PRN PO PAIN Last administered on 00:47; Start 05/22/17 at 11:15 Azithromycin (Zithromax) 500 mg DAILY PO Last administered on 05/23/17 08:39 ; Start 05/22/17 at 11:30 Docusate Sodium (Colace) 100 mg BID PO Last administered on 05/23/17 08:39; Start 05/22/17 at 21:00 Polyethylene Glycol (miraLAX) 17 gm DAILY PO Last administered on 05/23/17 08 :38; Start 05/22/17 at 11:30 Active Scripts Active Reported Tramadol Hcl (Tramadol HCl) 50 Mg Tablet 50 Mg PO PRN Q4HRS PRN Spiriva (Tiotropium [place]) 18 Mcg Cap.w.dev 1 Cap IH DAILY Serevent Diskus (Salmeterol Xinafoate) 50 Mcg Disk.w.dev 50 Mcg IH DAILY Osteo Bi-Flex Caplet (Glucosamine/D3/Boswellia Katarzyna) 1 Each Tablet 1 Each PO DAILY Cranberry (Cranberry Extract) 200 Mg Capsule 200 Mg PO DAILY Calcium (Calcium Carbonate) 500 Mg Tablet 500 Mg PO DAILY Aspirin 81 Mg Tab.chew 81 Mg PO DAILY LAST DOSE; TODAY AM NEXT DOSE; TOMORROW AM Multi-Day Vitamins (Multivitamin) 1 Each Tablet 1 Tab PO DAILY LAST DOSE; TODAY AM NEXT DOSE; TOMORROW AM Fosamax (Alendronate Sodium) 70 Mg Tablet 1 Tab PO WEEKLY LAST DOSE; NEXT DOSE; Omeprazole 40 Mg Capsule. 1 Cap PO DAILYAC LAST DOSE; TODAY AM NEXT DOSE; TOMORROW AM Norvasc (Amlodipine Besylate) 10 Mg Tablet 1 Tab PO DAILY LAST DOSE; TODAY AM NEXT DOSE; TOMORROW AM Patient Instructions Patient Instuctions TRANSFER TO [facility] FOR MRI AND POSSIBLE VERTEBROPLASTY. DR. SUAREZ ACCEPTING PHYSICIAN. MERARY RODRIGUEZ DO May 23, 2017 10:42
--- NOTE | 2017-05-23 12:11 | NUR ---
Pt transferred to [facility] room 665. Report given to Isa at 1120. EMS called at 1126. EMS arrived at 1200. Pt on 2L NC. IV maintained. Belongings sent with family per pt. Pt verbalized understanding of POC. Pt left at 1204.
== END 2017-05-23 12:04 | disposition short-term general hospital (02) | DRG 189 ==
LOC: ER 15:07 → ICU 17:16
PROVIDERS: ADMIT Internal Medicine; ATTEND Internal Medicine
DX: J96.01 Acute respiratory failure with hypoxia (principal); J44.1 Chronic obstructive pulmonary disease with (acute) exacerbation; M48.54XA Collapsed vertebra, not elsewhere classified, thoracic region, initial encounter for fracture; N39.0 Urinary tract infection, site not specified; J96.02 Acute respiratory failure with hypercapnia; H40.9 Unspecified glaucoma; I10 Essential (primary) hypertension; K44.9 Diaphragmatic hernia without obstruction or gangrene; M15.9 Polyosteoarthritis, unspecified; G89.29 Other chronic pain; K21.9 Gastro-esophageal reflux disease without esophagitis; F41.9 Anxiety disorder, unspecified; R91.8 Other nonspecific abnormal finding of lung field; M81.0 Age-related osteoporosis without current pathological fracture; Z79.82 Long term (current) use of aspirin; Z79.899 Other long term (current) drug therapy; Z80.49 Family history of malignant neoplasm of other genital organs; Z82.49 Family history of ischemic heart disease and other diseases of the circulatory system; Z87.891 Personal history of nicotine dependence; Z90.710 Acquired absence of both cervix and uterus; Z91.81 History of falling; Z98.41 Cataract extraction status, right eye; Z98.42 Cataract extraction status, left eye; Z87.81 Personal history of (healed) traumatic fracture; Z90.49 Acquired absence of other specified parts of digestive tract; Z90.12 Acquired absence of left breast and nipple; Z90.722 Acquired absence of ovaries, bilateral; Z87.440 Personal history of urinary (tract) infections; Z99.81 Dependence on supplemental oxygen
CPT/HCPCS: 36415; 71010; 71275; 80048; 80053; 81001; 82550; 82803; 83880; 84484; 85025; 85027; 85610; 85730; 87086; 87186; 87641; 93005; 94640; 96374; 96375; J0456; J0696; J1940; J2270; J2920; J2930; J7620; Q9967; 99285-25; J7030

== ENCOUNTER 2017-06-20 16:54 | Emergency (ER) | payer MEDICARE, BC ==
[~2017-06-20] VITALS: Ht 152.4 cm; Wt 58.6 kg
[2017-06-20] MEDS ORDERED: 0.9 % SODIUM CHLORIDE 10 ML DISP.SYRIN. IV ONE (17:15)
[2017-06-20 17:29] LABS: BGAS PH 7.42 (7.35-7.45)
--- NOTE | 2017-06-20 17:37 | EKG ---
[address] [address] Test Date: 2017-06-20 Test Time: 17:35:06 Pat Name: ELAINE BELCHER Department: Room: Gender: F Histological Illustrator: GUERO : 1930 Requested By: URBAN GORE Order Number: [id number] Reading MD: Carlos Manuel Kuhn MD Measurements Intervals [place] Rate: 71 P: -43 [place]: 140 QRS: 17 QRSD: 94 T: 25 QT: 396 QTc: 435 Interpretive Statements SINUS RHYTHM QRS(T) CONTOUR ABNORMALITY CONSISTENT WITH SEPTAL INFARCT PROBABLY OLD Electronically Signed On 06-28-2017 13:55:07 INTERVENTION MANAGER by Carlos Manuel Kuhn MD
[2017-06-20 17:55] LABS: BASO # 0.1 x10^3/uL (0.0-0.2); BASO % 1 % (0-3); EOS # 0.3 x10^3/uL (0.0-0.7); EOS % 3 % (0-3); HEMATOCRIT 41.5 % (36.0-47.0); HEMOGLOBIN 14.1 g/dL (12.0-15.5); LYMPH # 3.4 x10^3/uL (1.0-4.8); LYMPH % 44 % (24-48); MEAN CORPUSCULAR HEMOGLOBIN 32 pg (25-35); MEAN CORPUSCULAR HGB CONC 34 g/dL (31-37); MEAN CORPUSCULAR VOLUME 94 fL (79-100); MONO # 0.8 x10^3/uL (0.0-1.1); MONO % 11 % (0-9); NEUT # 3.2 x10^3uL (1.8-7.7); NEUT % 41 % (31-73); PLATELET COUNT 231 x10^3/uL (140-400); RED BLOOD COUNT 4.43 x10^6/uL (3.50-5.40); RED CELL DISTRIBUTION WIDTH 14.2 % (11.5-14.5); WHITE BLOOD COUNT 7.8 x10^3/uL (4.0-11.0)
--- NOTE | 2017-06-20 18:00 | PHYS DOC ---
Past History Past Medical History: Anxiety, COPD, GERD, Hypertension, UTI Past Surgical History: Other Smoking: Non-smoker, Quit Greater Than 1 Year Alcohol Use: None Drug Use: None Adult General Chief Complaint Chief Complaint: SHORTNESS OF BREATH HPI HPI 86-year-old male patient presents of care home with history of COPD without home oxygen brought in by EMS because of shortness of breath. Patient complaining of constant shortness of breath and mild cough for the last 2 days without chest pain, fever and chills, change of SOB with activity or supine position. Patient had history of recent back surgery. Review of Systems Review of Systems Constitutional: Denies fever or chills [] Eyes: Denies change in visual acuity, redness, or eye pain [] HENT: Denies nasal congestion or sore throat [] Respiratory: Report cough and shortness of breath [] Cardiovascular: No additional information not addressed in HPI [] GI: Denies abdominal pain, nausea, vomiting, bloody stools or diarrhea [] : Denies dysuria or hematuria [] Musculoskeletal: Denies back pain or joint pain [] Integument: Denies rash or skin lesions [] Neurologic: Denies headache, focal weakness or sensory changes [] Endocrine: Denies polyuria or polydipsia [] All other systems were reviewed and found to be within normal limits, except as documented in this note. Current Medications Current Medications Current Medications Medications (Trade) Dose Ordered Sig/Joel Start Time Stop Time Status Last Admin Dose Admin Sodium Chloride (Normal Saline Flush) 10 ml 1X ONCE 06/20/17 17:15 06/20/17 17:16 DC Allergies Allergies Allergies Coded Allergies Type Severity Reaction Last Updated Verified I S O L A T I O N *CONTACT* Allergy Unknown 05/23/17 Yes NKMA Allergy Unknown 05/23/17 Yes Physical Exam Physical Exam Constitutional: Well developed, well nourished, mild distress, non-toxic appearance. [] HENT: Normocephalic, atraumatic, bilateral external ears normal, oropharynx moist, no oral exudates, nose normal. [] Eyes: PERRLA, EOMI, conjunctiva normal, no discharge. [] Neck: Normal range of motion, no tenderness, supple, no stridor. [] Cardiovascular:Heart rate regular rhythm, no murmur [] Lungs & Thorax: Bilateral mild rales, no respiratory distress Abdomen: Bowel sounds normal, soft, no tenderness, no masses, no pulsatile masses. [] Skin: Warm, dry, no erythema, no rash. [] Back: No tenderness, no CVA tenderness. [] Extremities: No tenderness, no cyanosis, no clubbing, ROM intact, no edema. [] Neurologic: Alert and oriented X 3, normal motor function, normal sensory function, no focal deficits noted. [] Psychologic: Affect normal, judgement normal, mood normal. [] Current Patient Data Lab Results Laboratory Tests Test 06/20/17 17:07 Blood pH 7.42 (7.35-7.45) Blood Gas PCO2 40 mmHg (35-45) Blood Gas PO2 73 mmHg (71-100) Blood Gas HCO3 26 mmol/L (22-26) Arterial Bld O2 Saturation (Calc) 95 % (92-99) FiO2 28 % EKG EKG [EKG interpreted by me, EKG at 1736 showed sinus rhythm at rate of [address] and T-wave change, Q waves in septal leads] Radiology/Procedures Radiology/Procedures 6 interpreted by me and did not show infiltrate, increase of pulmonary vascularity CT show on large PE, chronic Emphysema changes. Course & Med Decision Making Course & Med Decision Making Pertinent Labs and Imaging studies reviewed. (See chart for details) Lab studies pending, patient care transferred to Dr. Vale at 1800 Discussed presentation, testing and Tx. plan with Dr. Ramirez. Will discharge on Prednisone 50 x 5 days. Zithromax 250 x 5 days. Add Albuterol 2 puffs four times day with other inhalers. Will need close follow up with primary. Return if any concerns. ABG currently nl on room air. Impression: 1. COPD exacerbation 2. Bronchitis [] Dragon Disclaimer Dragon Disclaimer This electronic medical record was generated, in whole or in part, using a voice recognition dictation system. Departure Departure: Impression: Primary Impression: Dyspnea Referrals: MARIAN SHETH MD (PCP) Scripts Azithromycin (ZITHROMAX) 250 Mg Tablet 250 MG PO DAILY for ANTI-BIOTIC for 5 Days, #5 TAB 0 Refills Prov: JOSE VALE MD 06/20/17 Prednisone (PREDNISONE) 50 Mg Tablet 50 MG PO DAILY for 5 Days, #5 TAB Prov: JOSE VALE MD 06/20/17 URBAN GORE MD Jun 20, 2017 18:00 JOSE VALE MD Jun 20, 2017 22:35
[2017-06-20 18:19] LABS: ALBUMIN 3.7 g/dL (3.4-5.0); ALBUMIN/GLOBULIN RATIO 1.1 (1.0-1.7); CALCIUM 9.1 mg/dL (8.5-10.1); CREATININE 0.6 mg/dL (0.6-1.0); POTASSIUM 4.4 mmol/L (3.5-5.1); TOTAL BILIRUBIN 0.3 mg/dL (0.2-1.0); TOTAL PROTEIN 7.1 g/dL (6.4-8.2)
[2017-06-20 18:34] LABS: INFLUENZA A PATIENT NEGATIVE (NEGATIVE); INFLUENZA B PATIENT NEGATIVE (NEGATIVE)
[2017-06-20] MEDS ORDERED: CONTRAST GIVEN MC PRN (19:45)
[2017-06-20] MEDS ORDERED: IOHEXOL 300 MG/ML 75 ML VIAL. IV ONE (19:45)
--- NOTE | 2017-06-20 20:59 | RAD ---
Examination: CT angiography chest HISTORY: History of dyspnea, chest pain, elevated d-dimer COMPARISON: 05/21/2017 TECHNIQUE: Axial CT angiography images were performed with IV contrast. Coronal and sagittal 3-D MIP reformats are performed Exposure: One or more of the following individualized dose reduction techniques were utilized for this examination: 1. Automated exposure control 2. Adjustment of the mA and/or kV according to patient size 3. Use of iterative reconstruction technique FINDINGS: The central airways are patent. The ascending aorta measures 3.7 cm in transverse dimension. There is no evidence of filling defect identified in the main pulmonary arterial trunk and right and left main pulmonary arteries and the visualized lobar, segmental branches of the pulmonary arteries. Moderate emphysematous changes identified in the bilateral lungs. Mild bibasilar lung atelectasis. Diffuse coronary artery calcifications. The heart size grossly appears unremarkable. Moderate size hiatal hernia. The visualized liver demonstrates small hypodensity identified in the left lobe of the liver grossly similar to prior exam probably a cyst or hemangioma. The adrenals grossly appears unremarkable. Cystic structure identified in the left kidney similar to prior exam probably a cyst. Moderate degenerative changes thoracic spine. Kyphoplasty changes identified at T7, L1 vertebral levels grossly similar to prior exam. Minimal compression change of T9 unchanged. IMPRESSION: 1. No evidence of pulmonary embolism. 2. Moderate hiatal hernia. 2. Emphysematous changes bilateral lungs. Electronically signed by: Felice Gonzalez MD (06/20/2017 8:55 PM) [facility]
[2017-06-20] MEDS ORDERED: ALBUTEROL SULFATE 8GM INHALER. INH ONE (22:00)
[2017-06-20] MEDS ORDERED: AZITHROMYCIN 250 MG TABLET. PO ONE (22:00)
[2017-06-20] MEDS ORDERED: methylPREDNISolone SOD SUCC PF 125 MG/2 ML VIAL. IV ONE (22:00)
[2017-06-20] MEDS ORDERED: AZIT250T PO (22:10)
[2017-06-20] MEDS ORDERED: PRED50TA PO (22:10)
[2017-06-20 22:15] VITALS: BP 142/81
--- NOTE | 2017-06-21 08:06 | RAD ---
Portable chest, 06/20/2017: History: Shortness of breath Comparison is made to a study from 05/20/2017. The heart size is normal. A retrocardiac gas-containing structures compatible with a moderate-sized hiatal hernia. There is calcific plaquing of the aorta. A calcified granuloma is present in the left lung. There is mild linear scarring in the left base. No acute infiltrate is seen. There is no evidence of pleural fluid. The bony structures are demineralized. IMPRESSION: 1. Hiatal hernia. 2. Mild left basilar scarring. 3. No acute abnormality is detected.
== END 2017-06-20 23:30 | disposition home or self-care (01) ==
LOC: ER 16:54
DX: J44.1 Chronic obstructive pulmonary disease with (acute) exacerbation (principal); K21.9 Gastro-esophageal reflux disease without esophagitis; I10 Essential (primary) hypertension; Z87.440 Personal history of urinary (tract) infections; Z87.891 Personal history of nicotine dependence; Z91.041 Radiographic dye allergy status
CPT/HCPCS: 36415; 36600; 71010; 71275; 80053; 82553; 82803; 83605; 83880; 84484; 85025; 85379; 87040; 87804; 93005; 94640; 96374; 99285; J0456; J2930; J7613; Q9967

== ENCOUNTER → 2017-10-19 | Outpatient (CLI) | payer MEDICARE, BC ==
[~2017-10-19] MED LIST changes: +AZIT250T PO; +PRED50TA PO
--- NOTE | 2017-10-19 10:43 | RAD ---
Bone densitometry scan, 10/19/2017: History: Osteoporosis The lumbar spine, right hip and left forearm were examined utilizing a DEXA technique. The bone mineral density in the lumbar spine as measured from the L1-L4 levels is 0.83 g/sq cm. This yields a T score of -2.9 compatible with osteoporosis. The lumbar spine T score on the 06 14 2016 exam was -2.4. The total T score at the right hip is -3.8, also compatible with osteoporosis. The right hip T score the previous study was -2.3. The total T score at the left radius is -5.8, compatible with osteoporosis. IMPRESSION: Worsening osteoporosis as described above.
== END | disposition home or self-care (01) ==
LOC: DXRAD 09:25
PROVIDERS: ATTEND Nurse Practitioner Family
DX: M81.0 Age-related osteoporosis without current pathological fracture (principal); F32.89 Other specified depressive episodes
CPT/HCPCS: 77080; 77081

== ENCOUNTER 2018-05-19 13:29 | Emergency (ER) | payer MEDICARE, BC ==
[2018-05-19] MEDS ORDERED: IV NORMAL SALINE 1,000ML 1,000 ML IV SCH (14:00)
--- NOTE | 2018-05-19 14:19 | PHYS DOC ---
Past History Past Medical History: Anxiety, COPD, GERD, Hypertension, UTI Past Surgical History: Hysterectomy, Other Smoking: Non-smoker, Quit Greater Than 1 Year Alcohol Use: None Drug Use: None Adult General Chief Complaint Chief Complaint: FLANK PAIN HPI HPI Patient is a 87 year old female resident of jail who presents with complaining of low back and left flank pain for the last 4 days as a constant pain without radiation. Patient states the pain is a sharp pain and rated her pain 8/10 and states the pain getting worse with movement. Patient denies nausea and vomiting, fever and chills, urinary symptom, diarrhea. Patient states she usually has bowel movements every day but for the last 4 days did not have any bowel movement after taking narcotic pain medication. Patient had unremarkable UA and urine culture at jail and sent to ER for more evaluation. Patient denies fall and injury and history of the same pain, focal neuro deficit, urine and bowel incontinence. Review of Systems Review of Systems Constitutional: Denies fever or chills [] Eyes: Denies change in visual acuity, redness, or eye pain [] HENT: Denies nasal congestion or sore throat [] Respiratory: Denies cough or shortness of breath [] Cardiovascular: No additional information not addressed in HPI [] GI: Denies abdominal pain, nausea, vomiting, bloody stools or diarrhea [] : Denies dysuria or hematuria [] Musculoskeletal: Reports back pain, denies joint pain [] Integument: Denies rash or skin lesions [] Neurologic: Denies headache, focal weakness or sensory changes [] Endocrine: Denies polyuria or polydipsia [] All other systems were reviewed and found to be within normal limits, except as documented in this note. Current Medications Current Medications Current Medications Medications (Trade) Dose Ordered Sig/Joel Start Time Stop Time Status Last Admin Dose Admin Sodium Chloride 1,000 ml @ 1,000 mls/hr Q1H 05/19/18 14:00 05/19/18 14:59 Allergies Allergies Allergies Coded Allergies Type Severity Reaction Last Updated Verified I S O L A T I O N *CONTACT* Allergy Unknown 05/23/17 Yes NKMA Allergy Unknown 05/23/17 Yes Physical Exam Physical Exam Constitutional: Well developed, well nourished, mild distress, non-toxic appearance. [] HENT: Normocephalic, atraumatic Eyes: PERRLA, EOMI, conjunctiva normal, no discharge. [] Neck: Normal range of motion, no tenderness, supple, no stridor. [] Cardiovascular:Heart rate regular rhythm, no murmur [] Lungs & Thorax: Bilateral breath sounds clear to auscultation [] Abdomen: Bowel sounds normal, soft, no tenderness, no masses, no pulsatile masses. [] Skin: Warm, dry, no erythema, no rash. [] Back: Mild lumbar midline tenderness, left paraspinal tenderness, painful range of motion, no CVA tenderness. [] Extremities: No tenderness, no cyanosis, no clubbing, ROM intact, no edema. [] Neurologic: Alert and oriented X 3, normal motor function, normal sensory function, no focal deficits noted. [] Psychologic: Affect anxious, judgement normal, mood normal. [] EKG EKG [] Radiology/Procedures Radiology/[place] [address] IMAGING REPORT Signed PATIENT: ELAINE BELCHER ACCOUNT: [id number] : 1930 LOCATION: ER AGE: 87 SEX: F EXAM STATUS: REG ER ORD. PHYSICIAN: URBAN GORE MD REASON: back pain PROCEDURE: CT ABDOMEN PELVIS WO CONTRAST CT of the abdomen and pelvis without contrast, 05/19/2018: HISTORY: Back pain Noncontrast scans were obtained as requested. There is mild linear scarring and/or atelectasis in the lung bases. There is a large hiatal hernia with approximately half of the stomach lying above the level the diaphragmatic hiatus. There are calcified granulomata in the liver and spleen. The liver demonstrates a prominent Carlton's lobe, measuring 18-19 cm in craniocaudad extent at the level the right lobe. A small lucency in the left lobe of the liver is probably a cyst. The unopacified liver is otherwise unremarkable. No gallbladder abnormality is seen. The pancreas is unremarkable. The spleen is of normal size. There is a 3.4 cm low-density lesion in the left kidney compatible with a cyst. There is a tiny right renal calcification. The kidneys show no evidence of obstruction. There is moderate aortoiliac calcific plaquing without evidence of aneurysm. No abdominal or pelvic adenopathy is seen. The uterus appears to be surgically absent. There are scattered colonic diverticula which are most numerous in the sigmoid region. No paracolonic inflammatory process is seen. The cecum extends deep into the lower right pelvis. No dilated appendix or pericecal inflammatory process is seen. No free air or free fluid is identified in the abdomen or pelvis. There are radiopacities along the anterior abdominal wall at the pelvic level probably related to a surgical mesh from a hernia repair. Lumbar spine fractures and scattered degenerative changes are noted and will be fully described on the CT lumbar spine report. IMPRESSION: 1. Extensive colonic diverticulosis. 2. Large hiatal hernia. 3. Small hepatic and left renal cysts. 4. No acute abdominal or pelvic abnormality is detected. PQRS Compliance Statement: One or more of the following individualized dose reduction techniques were utilized for this examination: 1. Automated exposure control 2. Adjustment of the mA and/or kV according to patient size 3. Use of iterative reconstruction technique Electronically signed by: Rory Nieves MD (05/19/2018 3:02 PM) [facility] [place] DICTATED AND SIGNED BY: RORY NIEVES MD DATE: 05/19/18 1449 CC: URBAN GORE MD; MARIAN SHETH MD ~ [place] [address] IMAGING REPORT Signed PATIENT: ELAINE BELCHER ACCOUNT: [id number] : 1930 LOCATION: ER AGE: 87 SEX: F EXAM STATUS: REG ER ORD. PHYSICIAN: URBAN GORE MD REASON: back pain PROCEDURE: CT LUMBAR SPINE WO CONTRAST CT of the lumbar spine without contrast, 05/19/2018: HISTORY: Back pain Noncontrast scans were obtained with multiplanar reconstructions produced. There is a vertebral compression fracture at T12 with vertebroplasty change. This is unchanged since the CT chest exam from 06/20/2017. A mild superior endplate fracture at L1 is new since 06/20/2017. There are mild vertebral compression deformities at L3 and L5. These were not present on MR study from 07/22/2014. No definite acute fracture line is seen. The L2 and L4 vertebral heights are well-maintained. There is a mild left convexity lumbar scoliosis. There are moderate scattered marginal spurs. There is moderate disc space narrowing, endplate sclerosis and spurring at L1-2 with a vacuum disc phenomena. There are moderate to severe degenerative changes involving multiple facet joints bilaterally. At L2-3 there is mild broad-based posterior disc bulging and mild posterior ligamentous thickening. The combination of findings is causing borderline narrowing of the central spinal canal in a triangular configuration. No high-grade spinal stenosis is evident in the lumbar spine. IMPRESSION: 1. Moderate multilevel degenerative change as described above. 2. Mild superior endplate fracture at L1 which is probably acute or subacute. It was not present on 06/20/2017. 3. Mild vertebral compression deformities at L3 and L5 are new since 2014. PQRS Compliance Statement: One or more of the following individualized dose reduction techniques were utilized for this examination: 1. Automated exposure control 2. Adjustment of the mA and/or kV according to patient size 3. Use of iterative reconstruction technique Electronically signed by: Rory Nieves MD (05/19/2018 3:13 PM) [facility] [place] DICTATED AND SIGNED BY: RORY NIEVES MD DATE: 05/19/18 9652 CC: URBAN GORE MD; MARIAN SHETH MD ~ Course & Med Decision Making Course & Med Decision Making Pertinent Labs and Imaging studies reviewed. (See chart for details) Evaluation of patient in ER showed 87-year-old female patient resident of jail with complaining of low back pain for 4 days with negative UA and jail. Patient had an acute compression fracture of L1 and UTI and treated with fentanyl and Rocephin and felt better. Patient wanted to go to jail and did not want to have hospitalization for pain management. Dragon Disclaimer Dragon Disclaimer This electronic medical record was generated, in whole or in part, using a voice recognition dictation system. Departure Departure: Impression: Primary Impression: Compression fracture of lumbar spine, non-traumatic Additional Impressions: UTI (lower urinary tract infection) Diverticulosis Hiatal hernia Renal cyst History of compression fracture of spine COPD (chronic obstructive pulmonary disease) Low back pain Constipation Disposition: 03 XFER SNF (at 1624) Condition: IMPROVED Referrals: MARIAN SHETH MD (PCP) Patient Instructions: Back, Compression Fracture, Constipation, Adult, Diverticulosis, Urinary Tract Infection Additional Instructions: Drink plenty of liquids Follow-up with your primary care physician in 2-3 days Return to ER if not getting better Continue current pain medication Scripts Cephalexin (KEFLEX) 500 Mg Capsule 2 CAP PO Q12HR for infection, #28 CAP Prov: URBAN GORE MD 05/19/18 Problem Qualifiers URBAN GORE MD May 19, 2018 14:19
[2018-05-19 14:25] LABS: BASO # 0.1 x10^3/uL (0.0-0.2); BASO % 1 % (0-3); EOS # 0.2 x10^3/uL (0.0-0.7); EOS % 3 % (0-3); HEMATOCRIT 38.8 % (36.0-47.0); HEMOGLOBIN 12.9 g/dL (12.0-15.5); LYMPH # 2.2 x10^3/uL (1.0-4.8); LYMPH % 30 % (24-48); MEAN CORPUSCULAR HEMOGLOBIN 31 pg (25-35); MEAN CORPUSCULAR HGB CONC 33 g/dL (31-37); MEAN CORPUSCULAR VOLUME 92 fL (79-100); MONO # 0.7 x10^3/uL (0.0-1.1); MONO % 9 % (0-9); NEUT # 4.1 x10^3uL (1.8-7.7); NEUT % 57 % (31-73); PLATELET COUNT 214 x10^3/uL (140-400); RED BLOOD COUNT 4.21 x10^6/uL (3.50-5.40); RED CELL DISTRIBUTION WIDTH 13.3 % (11.5-14.5); WHITE BLOOD COUNT 7.2 x10^3/uL (4.0-11.0)
[2018-05-19 14:34] LABS: ALBUMIN 3.7 g/dL (3.4-5.0); ALBUMIN/GLOBULIN RATIO 1.1 (1.0-1.7); CALCIUM 8.6 mg/dL (8.5-10.1); CREATININE 0.7 mg/dL (0.6-1.0); GFR 79.3; POTASSIUM 4.3 mmol/L (3.5-5.1); TOTAL BILIRUBIN 0.5 mg/dL (0.2-1.0); TOTAL PROTEIN 7.2 g/dL (6.4-8.2)
--- NOTE | 2018-05-19 15:05 | RAD ---
CT of the abdomen and pelvis without contrast, 05/19/2018: HISTORY: Back pain Noncontrast scans were obtained as requested. There is mild linear scarring and/or atelectasis in the lung bases. There is a large hiatal hernia with approximately half of the stomach lying above the level the diaphragmatic hiatus. There are calcified granulomata in the liver and spleen. The liver demonstrates a prominent Carlton's lobe, measuring 18-19 cm in craniocaudad extent at the level the right lobe. A small lucency in the left lobe of the liver is probably a cyst. The unopacified liver is otherwise unremarkable. No gallbladder abnormality is seen. The pancreas is unremarkable. The spleen is of normal size. There is a 3.4 cm low-density lesion in the left kidney compatible with a cyst. There is a tiny right renal calcification. The kidneys show no evidence of obstruction. There is moderate aortoiliac calcific plaquing without evidence of aneurysm. No abdominal or pelvic adenopathy is seen. The uterus appears to be surgically absent. There are scattered colonic diverticula which are most numerous in the sigmoid region. No paracolonic inflammatory process is seen. The cecum extends deep into the lower right pelvis. No dilated appendix or pericecal inflammatory process is seen. No free air or free fluid is identified in the abdomen or pelvis. There are radiopacities along the anterior abdominal wall at the pelvic level probably related to a surgical mesh from a hernia repair. Lumbar spine fractures and scattered degenerative changes are noted and will be fully described on the CT lumbar spine report. IMPRESSION: 1. Extensive colonic diverticulosis. 2. Large hiatal hernia. 3. Small hepatic and left renal cysts. 4. No acute abdominal or pelvic abnormality is detected. PQRS Compliance Statement: One or more of the following individualized dose reduction techniques were utilized for this examination: 1. Automated exposure control 2. Adjustment of the mA and/or kV according to patient size 3. Use of iterative reconstruction technique Electronically signed by: Rory Mendieta MD (05/19/2018 3:02 PM) [facility]
--- NOTE | 2018-05-19 15:16 | RAD ---
CT of the lumbar spine without contrast, 05/19/2018: HISTORY: Back pain Noncontrast scans were obtained with multiplanar reconstructions produced. There is a vertebral compression fracture at T12 with vertebroplasty change. This is unchanged since the CT chest exam from 06/20/2017. A mild superior endplate fracture at L1 is new since 06/20/2017. There are mild vertebral compression deformities at L3 and L5. These were not present on MR study from 07/22/2014. No definite acute fracture line is seen. The L2 and L4 vertebral heights are well-maintained. There is a mild left convexity lumbar scoliosis. There are moderate scattered marginal spurs. There is moderate disc space narrowing, endplate sclerosis and spurring at L1-2 with a vacuum disc phenomena. There are moderate to severe degenerative changes involving multiple facet joints bilaterally. At L2-3 there is mild broad-based posterior disc bulging and mild posterior ligamentous thickening. The combination of findings is causing borderline narrowing of the central spinal canal in a triangular configuration. No high-grade spinal stenosis is evident in the lumbar spine. IMPRESSION: 1. Moderate multilevel degenerative change as described above. 2. Mild superior endplate fracture at L1 which is probably acute or subacute. It was not present on 06/20/2017. 3. Mild vertebral compression deformities at L3 and L5 are new since 2014. PQRS Compliance Statement: One or more of the following individualized dose reduction techniques were utilized for this examination: 1. Automated exposure control 2. Adjustment of the mA and/or kV according to patient size 3. Use of iterative reconstruction technique Electronically signed by: Rory Mendieta MD (05/19/2018 3:13 PM) [facility]
[2018-05-19 16:07] LABS: COLOR,URINE YELLOW
[2018-05-19 16:08] LABS: BACTERIA,URINE MANY /HPF (0-FEW); BILIRUBIN,URINE NEG (NEG); CLARITY,URINE HAZY; GLUCOSE,URINE NEG (NEG); NITRITE,URINE POS (NEG); SQUAMOUS EPITHELIAL CELL,UR MANY /LPF; UROBILINOGEN,URINE 0.2 mg/dL (0.2 mg/dL); WBC,URINE 20-40 /HPF (0-4)
[2018-05-19] MEDS ORDERED: cefTRIAXone SODIUM 1 GM VIAL IV ONE (16:24)
[2018-05-19] MEDS ORDERED: IV NORMAL SALINE 50ML 50 ML ONE (16:24)
[2018-05-19] MEDS ORDERED: CEPH-264 PO (16:27)
[2018-05-19 17:15] VITALS: BP 152/83
== END 2018-05-19 17:15 | disposition home or self-care (01) ==
LOC: ER 13:29
DX: M48.56XA Collapsed vertebra, not elsewhere classified, lumbar region, initial encounter for fracture (principal); N39.0 Urinary tract infection, site not specified; K57.30 Diverticulosis of large intestine without perforation or abscess without bleeding; K44.9 Diaphragmatic hernia without obstruction or gangrene; N28.1 Cyst of kidney, acquired; J44.9 Chronic obstructive pulmonary disease, unspecified; K59.00 Constipation, unspecified; F41.9 Anxiety disorder, unspecified; K21.9 Gastro-esophageal reflux disease without esophagitis; I10 Essential (primary) hypertension; Z87.440 Personal history of urinary (tract) infections; Z90.710 Acquired absence of both cervix and uterus; Z87.891 Personal history of nicotine dependence; Z91.041 Radiographic dye allergy status
CPT/HCPCS: 36415; 72131; 74176; 80053; 81001; 83605; 83690; 83880; 84484; 85025; 87040; 87086; 96365; 96375; 99285; J0696; J3010; J7030

== ENCOUNTER 2018-06-23 14:00 | Inpatient (IN) | payer MEDICARE, BC ==
[~2018-06-23] VITALS: Ht 162.6 cm; Wt 55.5 kg
[~2018-06-23 14:00] MED LIST changes: +CEPH-264 PO
[2018-06-23] MEDS ORDERED: IPRATRPIUM/ALBUTEROL 0.5/2.5MG 3 ML NEBU. NEB ONE (14:30)
[2018-06-23 14:44] LABS: BASO % 1 % (0-3); EOS # 0.2 x10^3/uL (0.0-0.7); EOS % 2 % (0-3); HEMATOCRIT 39.7 % (36.0-47.0); HEMOGLOBIN 13.2 g/dL (12.0-15.5); LYMPH # 1.9 x10^3/uL (1.0-4.8); LYMPH % 20 % (24-48); MEAN CORPUSCULAR HEMOGLOBIN 31 pg (25-35); MEAN CORPUSCULAR HGB CONC 33 g/dL (31-37); MEAN CORPUSCULAR VOLUME 92 fL (79-100); MONO % 11 % (0-9); NEUT % 66 % (31-73); PLATELET COUNT 237 x10^3/uL (140-400); RED CELL DISTRIBUTION WIDTH 13.7 % (11.5-14.5); WHITE BLOOD COUNT 9.1 x10^3/uL (4.0-11.0)
[2018-06-23 14:58] LABS: ALBUMIN 3.7 g/dL (3.4-5.0); CALCIUM 8.9 mg/dL (8.5-10.1); CREATININE 0.5 mg/dL (0.6-1.0); POTASSIUM 4.1 mmol/L (3.5-5.1); TOTAL BILIRUBIN 0.5 mg/dL (0.2-1.0); TOTAL PROTEIN 7.5 g/dL (6.4-8.2)
--- NOTE | 2018-06-23 15:21 | RAD ---
Chest radiograph 06/23/2018 1:50 PM INDICATION: Shortness of breath COMPARISON: CT chest June 20, 2017 TECHNIQUE: Frontal view of the chest is provided. FINDINGS: The cardiomediastinal silhouette is within normal limits. There are no pleural effusions. There is no pulmonary vascular congestion. There is no pneumothorax. The lungs are clear. Moderate to large sized hiatal hernia is identified. There is a 6 mm calcified granuloma in the left midlung. Calcified left hilar lymphadenopathy. No significant osseous abnormality is identified. IMPRESSION: No acute cardiopulmonary process. Right pericardiac density is suggestive of moderate to large hiatal hernia. Electronically signed by: Bri Spears MD (06/23/2018 3:17 PM) [id number]
--- NOTE | 2018-06-23 15:26 | PHYS DOC ---
Past History Past Medical History: COPD, Hypertension Past Surgical History: Hysterectomy, Other Smoking: Non-smoker, Quit Greater Than 1 Year Alcohol Use: None Drug Use: None Adult General Chief Complaint Chief Complaint: SHORTNESS OF BREATH HPI HPI 87-year-old female presents with 2 day history of shortness of breath. Patient was at her care facility progressing through rehabilitation. She was feeling somewhat short of breath last night but did not tell anyone. When the staff when to check on her this morning he found her to have increased work of breathing and she was diffusely wheezy in both lung fernando. They called EMS to bring the patient to the hospital. The patient is on 2 and half to 3 L of oxygen at baseline. She currently is satting 94% on 2 L. The patient states that she subjectively feels short of breath and feels like she is wheezing. The patient is had long-standing COPD. She denies significant change her cough or sputum. She denies fever or chills. Review of Systems Review of Systems Constitutional: Denies fever or chills [] Eyes: Denies change in visual acuity, redness, or eye pain [] HENT: Denies nasal congestion or sore throat [] Respiratory: Cough with shortness of breath [] Cardiovascular: No additional information not addressed in HPI [] GI: Denies abdominal pain, nausea, vomiting, bloody stools or diarrhea [] : Denies dysuria or hematuria [] Musculoskeletal: Denies back pain or joint pain [] Integument: Denies rash or skin lesions [] Neurologic: Denies headache, focal weakness or sensory changes [] Endocrine: Denies polyuria or polydipsia [] All other systems were reviewed and found to be within normal limits, except as documented in this note. Current Medications Current Medications Current Medications Medications (Trade) Dose Ordered Sig/Joel Start Time Stop Time Status Last Admin Dose Admin Albuterol/ Ipratropium (Duoneb) 3 ml 1X ONCE 06/23/18 14:30 06/23/18 14:31 DC 06/23/18 14:37 3 ML Methylprednisolone Sodium Succinate (SOLU-Medrol 125MG VIAL) 125 mg 1X ONCE 06/23/18 15:30 18 15:31 UNV Allergies Allergies Allergies Coded Allergies Type Severity Reaction Last Updated Verified I S O L A T I O N *CONTACT* Allergy Unknown 05/23/17 Yes NKMA Allergy Unknown 05/23/17 Yes Physical Exam Physical Exam Constitutional: Well developed, well nourished, no acute distress, non-toxic appearance. [] HENT: Normocephalic, atraumatic, bilateral external ears normal, oropharynx moist, no oral exudates, nose normal. [] Eyes: PERRLA, EOMI, conjunctiva normal, no discharge. [] Neck: Normal range of motion, no tenderness, supple, no stridor. [] Cardiovascular:Heart rate regular rhythm, no murmur [] Lungs & Thorax: Bilateral breath sounds diminished with bilateral wheezing.[] Abdomen: Bowel sounds normal, soft, no tenderness, no masses, no pulsatile masses. [] Skin: Warm, dry, no erythema, no rash. [] Back: No tenderness, no CVA tenderness. [] Extremities: No tenderness, no cyanosis, no clubbing, ROM intact, no edema. [] Neurologic: Alert and oriented X 3, normal motor function, normal sensory function, no focal deficits noted. [] Psychologic: Affect normal, judgement normal, mood normal. [] Current Patient Data Vital Signs Vital Signs Date Time Temp Pulse Resp B/P (MAP) Pulse Ox O2 Delivery O2 Flow Rate FiO2 06/23/18 14:37 97 Nasal Cannula 2.0 06/23/18 14:21 98.3 77 18 Lab Results Laboratory Tests Test 06/23/18 14:26 White Blood Count 9.1 x10^3/uL (4.0-11.0) Red Blood Count 4.30 x10^6/uL (3.50-5.40) Hemoglobin 13.2 g/dL (12.0-15.5) Hematocrit 39.7 % (36.0-47.0) Mean Corpuscular Volume 92 fL (79-100) Mean Corpuscular Hemoglobin 31 pg (25-35) Mean Corpuscular Hemoglobin Concent 33 g/dL (31-37) Red Cell Distribution Width 13.7 % (11.5-14.5) Platelet Count 237 x10^3/uL (140-400) Neutrophils (%) (Auto) 66 % (31-73) Lymphocytes (%) (Auto) 20 % (24-48) L Monocytes (%) (Auto) 11 % (0-9) H Eosinophils (%) (Auto) 2 % (0-3) Basophils (%) (Auto) 1 % (0-3) Neutrophils # (Auto) 6.0 x10^3uL (1.8-7.7) Lymphocytes # (Auto) 1.9 x10^3/uL (1.0-4.8) Monocytes # (Auto) 1.0 x10^3/uL (0.0-1.1) Eosinophils # (Auto) 0.2 x10^3/uL (0.0-0.7) Basophils # (Auto) 0.0 x10^3/uL (0.0-0.2) Sodium Level 141 mmol/L (136-145) Potassium Level 4.1 mmol/L (3.5-5.1) Chloride Level 101 mmol/L (98-107) Carbon Dioxide Level 30 mmol/L (21-32) Anion Gap 10 (6-14) Blood Urea Nitrogen 16 mg/dL (7-20) Creatinine 0.5 mg/dL (0.6-1.0) L Estimated GFR (Cockcroft-Gault) 117.0 BUN/Creatinine Ratio 32 (6-20) H Glucose Level 106 mg/dL (70-99) H Calcium Level 8.9 mg/dL (8.5-10.1) Total Bilirubin 0.5 mg/dL (0.2-1.0) Aspartate Amino Transferase (AST) 16 U/L (15-37) Alanine Aminotransferase (ALT) 15 U/L (14-59) Alkaline Phosphatase 58 U/L (46-116) Total Protein 7.5 g/dL (6.4-8.2) Albumin 3.7 g/dL (3.4-5.0) Albumin/Globulin Ratio 1.0 (1.0-1.7) EKG EKG [] Radiology/Procedures Radiology/Procedures [] Impressions: Chest radiograph 06/23/2018 1:50 PM INDICATION: Shortness of breath COMPARISON: CT chest June 20, 2017 TECHNIQUE: Frontal view of the chest is provided. FINDINGS: The cardiomediastinal silhouette is within normal limits. There are no pleural effusions. There is no pulmonary vascular congestion. There is no pneumothorax. The lungs are clear. Moderate to large sized hiatal hernia is identified. There is a 6 mm calcified granuloma in the left midlung. Calcified left hilar lymphadenopathy. No significant osseous abnormality is identified. IMPRESSION: No acute cardiopulmonary process. Right pericardiac density is suggestive of moderate to large hiatal hernia. Electronically signed by: Gelacio Irwin MD (06/23/2018 3:17 PM) [id number] DICTATED AND SIGNED BY: GELACIO IRWIN MD DATE: 06/23/18 1516 CC: ASHER EASON DO; MARIAN SHETH MD Course & Med Decision Making Course & Med Decision Making Pertinent Labs and Imaging studies reviewed. (See chart for details) The patient was given a DuoNeb treatment followed by 2 albuterol treatments. The patient appears to be having a COPD exacerbations. Her chest x-ray is negative for acute findings. I will treat her with 125 mg Solu-Medrol in the ED. Her labs are unremarkable. Her urine is pending. Patient appears dehydrated so given 1 L normal saline. I discussed the patient with Dr. Boucher and he has accepted the patient for admission. 35 minutes of critical care time was spent on this patient exclusive of other billable procedures. [] Dragon Disclaimer Dragon Disclaimer This electronic medical record was generated, in whole or in part, using a voice recognition dictation system. Departure Departure: Referrals: MARIAN SHETH MD (PCP) ASHER EASON DO Jun 23, 2018 15:26
[2018-06-23] MEDS ORDERED: ALBUTEROL SULFATE 2.5 MG/3 ML NEBU. NEB ONE (15:30)
[2018-06-23] MEDS ORDERED: IV NORMAL SALINE 1,000ML 1,000 ML IV ONE (15:30)
[2018-06-23] MEDS ORDERED: methylPREDNISolone SOD SUCC PF 125 MG/2 ML VIAL. IV ONE (15:45)
[2018-06-23] MEDS ORDERED: ONDANSETRON PF 4 MG/2 ML VIAL. IV PRN (16:15)
[2018-06-23 17:05] VITALS: BP 175/75
[2018-06-23] MEDS ORDERED: LOPE2CAP PO (17:45)
[2018-06-23] MEDS ORDERED: GLUC1CAP48 PO (17:45)
[2018-06-23] MEDS ORDERED: OXYC5TAB4 PO (17:45)
[2018-06-23] MEDS ORDERED: POTA10TA10 PO (17:45)
[2018-06-23] MEDS ORDERED: ONDA4TAB7 PO (17:45)
[2018-06-23] MEDS ORDERED: ACET500T68 PO (17:45)
[2018-06-23] MEDS ORDERED: LIDO700A39 TP (17:45)
[2018-06-23] MEDS ORDERED: DOCU-109 PO (17:45)
[2018-06-23] MEDS ORDERED: POLY17PO5 PO (17:45)
[2018-06-23] MEDS ORDERED: oxyCODONE IR 5 MG TABLET PO PRN (18:00)
[2018-06-23] MEDS ORDERED: traMADol 50 MG TABLET PO PRN (18:00)
[2018-06-23] MEDS ORDERED: ACETAMINOPHEN 325 MG TABLET PO PRN (18:15)
[2018-06-23] MEDS ORDERED: LOPERAMIDE 2 MG CAPSULE PO PRN (18:15)
[2018-06-23] MEDS: IPRATRPIUM/ALBUTEROL 0.5/2.5MG 3 ML NEBU. NEB SCH (19:25)
[2018-06-23 19:58] VITALS: BP 148/79
[2018-06-23] MEDS: DOCUSATE SODIUM 100 MG CAPSULE PO SCH (20:39)
[2018-06-23] MEDS ORDERED: ONDANSETRON ODT 4 MG TAB.RAPDIS PO SCH (22:00)
[2018-06-24 00:24] VITALS: BP 147/75
[2018-06-24 01:34] LABS: BILIRUBIN,URINE NEG (NEG); CLARITY,URINE CLOUDY; COLOR,URINE YELLOW; GLUCOSE,URINE NEG (NEG); NITRITE,URINE NEG (NEG); UROBILINOGEN,URINE 0.2 mg/dL (0.2 mg/dL)
[2018-06-24 01:35] LABS: BACTERIA,URINE MANY /HPF (0-FEW); SQUAMOUS EPITHELIAL CELL,UR FEW /LPF
[2018-06-24 05:34] VITALS: BP 119/64
[2018-06-24] MEDS ORDERED: ONDANSETRON ODT 4 MG TAB.RAPDIS PO PRN (05:45)
[2018-06-24] MEDS: IPRATRPIUM/ALBUTEROL 0.5/2.5MG 3 ML NEBU. NEB SCH ×4 (05:52→20:23)
[2018-06-24 08:04] LABS: BASO % 0 % (0-3); EOS % 0 % (0-3); HEMATOCRIT 35.8 % (36.0-47.0); HEMOGLOBIN 11.9 g/dL (12.0-15.5); LYMPH # 1.3 x10^3/uL (1.0-4.8); LYMPH % 20 % (24-48); MEAN CORPUSCULAR HEMOGLOBIN 30 pg (25-35); MEAN CORPUSCULAR HGB CONC 33 g/dL (31-37); MEAN CORPUSCULAR VOLUME 92 fL (79-100); MONO # 0.3 x10^3/uL (0.0-1.1); MONO % 5 % (0-9); NEUT # 4.9 x10^3uL (1.8-7.7); NEUT % 75 % (31-73); PLATELET COUNT 196 x10^3/uL (140-400); RED BLOOD COUNT 3.92 x10^6/uL (3.50-5.40); WHITE BLOOD COUNT 6.5 x10^3/uL (4.0-11.0)
[2018-06-24 08:19] LABS: ALBUMIN 3.4 g/dL (3.4-5.0); CALCIUM 8.5 mg/dL (8.5-10.1); CREATININE 0.5 mg/dL (0.6-1.0); POTASSIUM 4.2 mmol/L (3.5-5.1); TOTAL BILIRUBIN 0.4 mg/dL (0.2-1.0); TOTAL PROTEIN 6.9 g/dL (6.4-8.2)
[2018-06-24] MEDS ORDERED: NON FORMULARY ITEM (Tiotropium Bromide (Spiriva) 1 CAP) IH SCH (09:00)
[2018-06-24] MEDS ORDERED: NON FORMULARY ITEM (Glucosamine/D3/Boswellia Serra (Osteo Bi-Flex Caplet) 1 EACH) PO SCH (09:00)
[2018-06-24] MEDS ORDERED: NON FORMULARY ITEM (Cranberry Extract (Cranberry) 200 MG) PO SCH (09:00)
[2018-06-24] MEDS: DOCUSATE SODIUM 100 MG CAPSULE PO SCH ×2 (09:17→20:44)
[2018-06-24] MEDS: amLODIPine BESYLATE 10 MG TABLET PO SCH (09:18)
[2018-06-24] MEDS: PANTOPRAZOLE 40 MG TABLET. PO SCH (09:18)
[2018-06-24] MEDS: POLYETHYLENE GLYCOL 3350 17 GM PACKET. PO SCH (09:18)
[2018-06-24] MEDS: ASPIRIN 81 MG TAB.CHEW PO SCH (09:18)
[2018-06-24] MEDS: CALCIUM CARBONATE 500 MG TABLET PO SCH (09:18)
[2018-06-24] MEDS: POTASSIUM CHLORIDE 10 MEQ TABLET.ER. PO SCH (09:18)
[2018-06-24] MEDS: MULTIVITAMIN with MINERAL TABLET. PO SCH (09:18)
[2018-06-24] MEDS: LIDOCAINE (700MG/PATCH) PATCH. TD SCH (09:19)
[2018-06-24] MEDS: GLUCOSAMINE/CHOND 500/400MG CAPSULE PO SCH (09:20)
--- NOTE | 2018-06-24 09:50 | HP ---
ADMIT DATE: 06/23/2018 HISTORY OF PRESENT ILLNESS: The patient is an 87-year-old female patient, a resident at [facility], who was brought to the Emergency Room last night as she has been complaining of shortness of breath that has been worsening since and on Tuesday, she became more short of bed. She has had diffuse wheezing both lungs. The nursing staff seen her yesterday morning and was found her to have increased work of breathing and therefore the emergency medical service personnel was contacted and she was brought to the Emergency Room. On questioning her, about her cough, which is dry, she denied any chills, rigors or fever. She was investigated in the Emergency Room and her chest x-ray showed that there are no pleural effusions. There is no pulmonary vascular congestion, no pneumothorax. The lungs are clear. Moderate to large sized hiatal hernia is identified. There is a 6 mm calcified granuloma in the left mid lung, calcified left hilar lymphadenopathy with no significant osseous abnormalities identified. The patient was admitted with an acute hypoxic respiratory failure and chronic obstructive pulmonary disease exacerbation and was started on bronchodilators as well as steroids. ____. She has received steroids at the Emergency Room. We will continue obviously with steroids, bronchodilator and continue with all other medication and if she spiked a fever, has leukocytosis, or change in chest x-ray appearance, we will start her on antibiotic. PAST MEDICAL HISTORY: Her past medical history is significant for chronic obstructive pulmonary disease, hypertension, generalized osteoarthritis, osteoporosis, glaucoma. She has a history of fall with right clavicular fracture, treated conservatively with a sling. She also had a history of compression fracture for her lumbar vertebral spine, treated with vertebroplasty. PAST SURGICAL HISTORY: Past surgical history is significant for bilateral cataract extraction, tonsillectomy, left mastectomy, total abdominal hysterectomy, bilateral salpingo-oophorectomy. ALLERGIES: She has no known drug allergies. FAMILY HISTORY: She has 3 sisters. One sister had coronary artery disease and she is morbidly obese. One sister underwent knee and hip replacement. The younger sister is seemingly healthy. Her father at the age of 70 and mother in her 60s due to uterine cancer. SOCIAL HISTORY: She is . She has 1 daughter and 2 sons. She is currently living at [facility]. She used to go to [place] in wintertime where she lives with her sister in a trailer park and comes back usually at the end of November. She is an ex-smoker, quit in 1981. She smoked for 35 years, 1 pack a day. She does not drink alcohol. She worked for [employer] for 33 years. MEDICATIONS: She is currently on following medications: She is on Spiriva HandiHaler 1 inhalation once a day, amlodipine besylate 10 mg once a day, aspirin 81 mg once a day, oxycodone immediate release 5 mg every 4 hours, tramadol 50 mg every 4 hours, Tylenol 650 mg every 6 hours, calcium carbonate 500 mg daily, potassium chloride 20 mEq once a day, loperamide 2 mg 3 times a day, as needed Colace 100 mg twice a day, propylene glycol 17 grams daily p.r.n. for constipation, ondansetron 4 mg every 8 hours, omeprazole 40 mg daily. She is on Lidoderm patch 1 patch topically on for 12 hours and off 12 hours, multivitamin 1 tablet once a day, alendronate sodium for Fosamax 70 mg 1 tablet once a week, glucosamine and chondroitin capsule 1 capsule once a day, glucosamine for Osteo Bi-Flex tablets 1 daily. REVIEW OF SYSTEMS: As per history of present illness. PHYSICAL EXAMINATION: GENERAL: On arrival to the Emergency Room, she apparently was somewhat tachypneic, using accessory muscles. She was pale, but no jaundice, cyanosis, or thyromegaly. No jugular venous distension. No limb edema. VITAL SIGNS: Her heart rate was 93, blood pressure was 148/79. Her temperature was 98.1, respiratory rate 20 and oxygen saturation was 94% on 3 liters oxygen. HEENT: Examination of the head, eyes, ears, nose and throat showed normocephalic, atraumatic. NECK: Supple. HEART: Showed normal first and second heart sounds. No gallop, rub or murmur. CHEST: Showed central trachea, equal reduced expansion, reduced air entry, vesicular sounds with scattered wheezing bilaterally. I could not appreciate any crepitation. ABDOMEN: Slightly distended, soft, nontender. NEUROLOGIC: She was awake, alert, responding appropriately. Her cranial nerves are intact. EXTREMITIES: She moves extremities without difficulty. LABORATORY DATA: Her lab work on arrival showed a white cell count of 9100, hemoglobin 13, hematocrit 39, MCV 92, and platelet count of 237,000. Her chemistry showed a serum sodium 141, potassium 4.1, chloride 101, bicarbonate 30, anion gap of 10, BUN 16, creatinine 0.5, estimated GFR was 117 mL per minute. Her glucose was 106, calcium was 8.9. Total bilirubin, AST, ALT, alkaline phosphatase were normal. Total protein was 7.5, albumin was 3.7. Her urinalysis showed the urine was yellow, cloudy with the pH of 6, specific gravity 1.015, and the urine showed a trace of protein, negative for glucose, large amount of ketones, trace of blood, negative for nitrite and there is trace of leukocyte esterase, 1-2 RBCs, 11-20 WBCs, and too many bacteria. IMPRESSION: So, the patient was admitted basically with, 1. Acute hypoxic respiratory failure, and 2. Chronic obstructive pulmonary disease exacerbation. 3. Her multiple other medical problems including hypertension, osteoarthritis, osteoporosis. PLAN: We will continue with the bronchodilator as well as steroids and inhaler and will see how, will follow her closely. LEORA ELY MD DR: NATHANAEL/mary JOB#: [id number] / [id number]
--- NOTE | 2018-06-24 10:47 | PN ---
DATE: 06/24/2018 SUBJECTIVE: The patient is sitting up in her bed, eating her breakfast comfortably. She is awake, alert, stated that she is feeling much better. She has had no more wheezing. PHYSICAL EXAMINATION: GENERAL: When I examined her this morning, she looked well and was clearly in no apparent distress. She was pale, but no jaundice, cyanosis, or thyromegaly. No jugular venous distention. No limb edema. VITAL SIGNS: Her heart rate was 72, blood pressure was 119/64, temperature was 98.6, respiratory rate was 20, and oxygen saturation was 98% on 3 liters of cannula. HEAD, EYES, EARS, NOSE AND THROAT: Normocephalic, atraumatic. NECK: Supple. HEART: Showed normal first and second sounds. No gallop, rub, or murmur. CHEST: Clear to auscultation. No crepitation or rhonchi. ABDOMEN: Distended, soft, nontender. No guarding or rigidity. No organomegaly. All hernial orifices intact. Bowel sounds normal. NEUROLOGIC: She is awake, alert, responding appropriately. All cranial nerves intact. She moves extremities without difficulty. She ambulates without assistance or assistive devices. She actually walks with a walker. Her intake was . LABORATORY DATA: As of this morning, her white cell count is down to 6500, hemoglobin 12, hematocrit 36, MCV 92, platelet count of 196,000. Her chemistry showed serum sodium 143, potassium 4.2, chloride 104, bicarbonate 30, anion gap of 9, BUN 18, creatinine 0.5. ASSESSMENT: In summary, this is an 87-year-old female patient, who was admitted with: 1. [id number] hypoxic hypercapnic respiratory failure. 2. COPD exacerbation. 3. Hypertension. 4. Osteoporosis/osteoarthritis. 5. Glaucoma. PLAN: To continue with bronchodilator. Continue with inhalers and steroids for DVT prophylaxis. I will start her on Lovenox and will consult physical and occupational therapy and once she is back to her baseline, she can be discharged back to [facility]. LEORA ELY MD DR: NATHANAEL/mary JOB#: [id number] / [id number]
[2018-06-24 13:35] VITALS: BP 128/82
[2018-06-24] MEDS: ENOXAPARIN 40 MG/0.4 ML SYRINGE. SQ SCH (14:41)
[2018-06-24] MEDS: methylPREDNISolone SOD SUCC PF 40 MG/ML VIAL. IV SCH ×2 (14:41→20:44)
[2018-06-24 16:55] VITALS: BP 132/65
[2018-06-24 20:28] VITALS: BP 127/68
[2018-06-24 23:40] VITALS: BP 142/90
[2018-06-25] MEDS: IPRATRPIUM/ALBUTEROL 0.5/2.5MG 3 ML NEBU. NEB SCH ×4 (05:16→20:46)
[2018-06-25] MEDS: methylPREDNISolone SOD SUCC PF 40 MG/ML VIAL. IV SCH ×3 (05:23→20:55)
[2018-06-25 05:28] VITALS: BP 148/75
[2018-06-25] MEDS: amLODIPine BESYLATE 10 MG TABLET PO SCH (08:22)
[2018-06-25] MEDS: POTASSIUM CHLORIDE 10 MEQ TABLET.ER. PO SCH (08:22)
[2018-06-25] MEDS: MULTIVITAMIN with MINERAL TABLET. PO SCH (08:23)
[2018-06-25] MEDS: DOCUSATE SODIUM 100 MG CAPSULE PO SCH ×2 (08:23→20:55)
[2018-06-25] MEDS: ASPIRIN 81 MG TAB.CHEW PO SCH (08:23)
[2018-06-25] MEDS: PANTOPRAZOLE 40 MG TABLET. PO SCH (08:23)
[2018-06-25] MEDS: CALCIUM CARBONATE 500 MG TABLET PO SCH (08:23)
[2018-06-25] MEDS: GLUCOSAMINE/CHOND 500/400MG CAPSULE PO SCH (08:24)
[2018-06-25] MEDS: POLYETHYLENE GLYCOL 3350 17 GM PACKET. PO SCH (08:24)
[2018-06-25] MEDS ORDERED: MAGNESIUM HYDROXIDE 2,400 MG/30 ML ORAL.SUSP. PO PRN (08:30)
[2018-06-25] MEDS: LIDOCAINE (700MG/PATCH) PATCH. TD SCH (08:45)
[2018-06-25] MEDS: ENOXAPARIN 40 MG/0.4 ML SYRINGE. SQ SCH (08:45)
[2018-06-25 10:03] VITALS: BP 128/88
--- NOTE | 2018-06-25 12:33 | RAD ---
Chest radiograph 06/25/2018 11:58 AM INDICATION: Worsening cough and shortness of breath COMPARISON: June 23, 2018 TECHNIQUE: Frontal and lateral views of the chest are provided. FINDINGS: The cardiomediastinal silhouette is within normal limits. There are no pleural effusions. There is no pulmonary vascular congestion. There is no pneumothorax. Strandy density in the left midlung most favors subsegmental atelectasis versus scarring. No definite focal airspace consolidation. Mild pulmonary emphysema is suspected. Spinal augmentation changes are identified in the mid and lower thoracic spine. There is a small to moderate-sized hiatal hernia. IMPRESSION: Aeration of lungs appears similar compared to prior examination. Electronically signed by: Bri Spears MD (06/25/2018 12:29 PM) [facility]
--- NOTE | 2018-06-25 13:01 | PN ---
DATE: 06/25/2018 SUBJECTIVE: The patient is sitting comfortably in her chair, in no apparent distress; however, she is complaining of recurrent bouts of dry hacking cough. She denied any chest pain, denied any shortness of breath. Denied any chills, rigors, or fever. The cough is dry. PHYSICAL EXAMINATION: GENERAL: When I examined her, she looked pale, somewhat cachectic, no jaundice, cyanosis, or thyromegaly. No jugular venous distension. No lower limb edema. VITAL SIGNS: Her heart rate was 89, blood pressure 128/88, temperature was 98.1, respiratory rate was 24, and oxygen saturation was 97% on 3 liters of oxygen by nasal cannula. HEAD, EYES, EARS, NOSE, AND THROAT: Showed normocephalic, atraumatic. NECK: Supple. HEART: Showed normal first and second heart sounds with no gallop, rub. or murmur. CHEST: Showed central trachea, equally reduced expansion, reduced air entry, scattered bilateral basal crepitation. I could not appreciate any rhonchi. ABDOMEN: Slightly distended, soft, nontender. NEUROLOGIC: She is awake, alert, responding appropriately. All cranial nerves intact. She moves extremities without difficulty. Her intake over the last 24 hours was 1200, output was 550. LABORATORY DATA: As of yesterday, her white cell count was 6500, hemoglobin 12, hematocrit 36, MCV 92, and platelet count of 196,000. Her serum sodium was 143, potassium 4.2, chloride 104, bicarbonate 30, anion gap of 9, BUN 18, creatinine 0.5, estimated GFR was 117 mL per minute. Her glucose 120, calcium was 8.5. Total bilirubin, AST, ALT, alkaline phosphatase were normal. ASSESSMENT: 1. 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 2. Chronic obstructive pulmonary disease exacerbation. 3. Hypertension. 4. Osteoporosis, osteoarthritis. 5. Glaucoma. PLAN: To continue bronchodilator. Continue with IV steroids. I have added Mucinex and Singulair. I will repeat her chest x-ray and if any changes, we will start her on IV Levaquin. LEORA ELY MD DR: NATHANAEL/mary JOB#: [id number] / [id number]
[2018-06-25 15:40] VITALS: BP 134/69
[2018-06-25 19:38] VITALS: BP 137/71
[2018-06-25] MEDS ORDERED: MONTELUKAST 10 MG TABLET. PO SCH (21:00)
[2018-06-25 22:36] VITALS: BP 139/78
[2018-06-25 23:20] VITALS: BP 124/69
[2018-06-26 05:27] VITALS: BP 152/76
[2018-06-26] MEDS: IPRATRPIUM/ALBUTEROL 0.5/2.5MG 3 ML NEBU. NEB SCH ×2 (05:34→10:12)
[2018-06-26] MEDS: methylPREDNISolone SOD SUCC PF 40 MG/ML VIAL. IV SCH (05:59)
[2018-06-26] MEDS: ASPIRIN 81 MG TAB.CHEW PO SCH (08:00)
[2018-06-26] MEDS: LIDOCAINE (700MG/PATCH) PATCH. TD SCH (09:29)
[2018-06-26] MEDS: ENOXAPARIN 40 MG/0.4 ML SYRINGE. SQ SCH (09:30)
[2018-06-26] MEDS: GLUCOSAMINE/CHOND 500/400MG CAPSULE PO SCH (09:30)
[2018-06-26] MEDS: MULTIVITAMIN with MINERAL TABLET. PO SCH (09:31)
[2018-06-26] MEDS: POTASSIUM CHLORIDE 10 MEQ TABLET.ER. PO SCH (09:32)
[2018-06-26] MEDS: CALCIUM CARBONATE 500 MG TABLET PO SCH (09:32)
[2018-06-26] MEDS: PANTOPRAZOLE 40 MG TABLET. PO SCH (09:33)
[2018-06-26] MEDS: DOCUSATE SODIUM 100 MG CAPSULE PO SCH (09:33)
[2018-06-26] MEDS: amLODIPine BESYLATE 10 MG TABLET PO SCH (09:34)
[2018-06-26] MEDS: POLYETHYLENE GLYCOL 3350 17 GM PACKET. PO SCH (09:34)
[2018-06-26] MEDS ORDERED: ALBU2.5V14 NEB (10:50)
[2018-06-26] MEDS ORDERED: GUAI600T47 PO (11:11)
[2018-06-26] MEDS ORDERED: MONT10TA9 PO (11:11)
[2018-06-26 11:23] VITALS: BP 124/71
--- NOTE | 2018-06-26 12:19 | DS ---
DATE OF DISCHARGE: 06/26/2018 HOSPITAL COURSE: The patient is an 87-year-old female patient, a resident at [facility], who was brought to the Emergency Room, complaining of increasing shortness of breath, hypoxic. She also complained of having cough that is mostly dry. She denied any chills, rigors or fever. She was extensively investigated in the Emergency Room. Her x-ray showed that there is no pleural effusion. No pulmonary vascular congestion or pneumothorax. Her lungs are clear. There is a moderate to large sized hiatal hernia identified. There is a 6 mm calcified granuloma in the left mid lung, calcified left hilar lymphadenopathy with no significant osseous abnormalities identified. She was admitted with acute hypoxic hypercapnic respiratory failure, started on IV Solu-Medrol together with bronchodilators. The patient was afebrile, has no leukocytosis. There is no evidence of any lung infection, so I did not start her on antibiotic and she did actually very well. PHYSICAL EXAMINATION: GENERAL: When I saw her today, she was sitting comfortably in her chair, in no apparent distress. On questioning her, she has had no more cough. She was able to finish a sentence without difficulty. She is not using any accessory muscles. Her lungs were clear and the decision was made to discharge her back to [facility] to continue with a tapering course of steroids. When I examined her, she was somewhat pale, but no jaundice, cyanosis, or thyromegaly. No jugular venous distension. No limb edema. VITAL SIGNS: Her heart rate was 65, blood pressure 152/76, temperature was 97.8, respiratory rate was 18 and oxygen saturation was 97% on 3 liters of oxygen. HEAD, EYES, EARS, NOSE AND THROAT: Showed normocephalic, atraumatic. NECK: Supple. HEART: Showed normal first and second sounds. No gallop, rub or murmur. CHEST: Clear to auscultation. No crepitation or rhonchi. ABDOMEN: Distended, soft, nontender. NEUROLOGIC: She is awake, alert, responding appropriately. All cranial nerves intact. She moves extremities without difficulty. She ambulates with a walker with standby assist. Her intake was 1360 hours, which was recorded. LABORATORY DATA: Her lab work showed a white cell count 6500, hemoglobin 12, hematocrit 36, MCV 92, and platelet count of 196,000. Her chemistry showed a serum sodium 143, potassium 4.2, chloride 104, bicarbonate 30, anion gap of 9, BUN 18, creatinine 0.5, estimated GFR was 117 mL per minute. Her glucose 120, calcium was 8.5. Total bilirubin, AST, ALT, alkaline phosphatase were normal. Her total protein was 6.9, albumin was 3.4. DISCHARGE MEDICATIONS: The patient was discharged home to continue albuterol sulfate by nebulizer every 4 hours as needed, Tylenol 650 mg every 6 hours, alendronate sodium 70 mg once a week, amlodipine besylate 10 mg daily, aspirin 81 mg daily, calcium carbonate 500 mg daily, cranberry extract 200 mg daily, docusate sodium for Colace 100 mg p.o. b.i.d., glucosamine and chondroitin sulfate 1 capsule daily, Lidoderm patch 1 patch daily, loperamide 2 mg 3 times a day, multivitamin 1 tablet daily, omeprazole 40 mg daily, ondansetron for Zofran 4 mg every 8 hours, oxycodone immediate release 5 mg every 4 hours, polyethylene glycol 17 grams daily p.r.n., potassium chloride 20 mEq daily. She is on tiotropium bromide for Spiriva HandiHaler 1 inhalation once a day, tramadol 50 mg every 4 hours. She was also on Mucinex 600 mg twice a day as well as Singulair 10 mg at bedtime. FINAL DISCHARGE DIAGNOSES: 1. 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 2. Chronic obstructive pulmonary disease exacerbation. 3. Hypertension. 4. Osteoporosis/osteoarthritis. 5. Glaucoma. LEORA ELY MD DR: NATHANAEL/mary JOB#: [id number] / [id number]
[2018-06-30] MEDS ORDERED: NON FORMULARY ITEM (Alendronate Sodium (Fosamax) 1 TAB) PO SCH (09:00)
== END 2018-06-26 14:40 | disposition home or self-care (01) | DRG 189 ==
LOC: ER 14:00 → ICU 16:38 → 1 SOUTH 06-24 13:15
PROVIDERS: ADMIT Internal Medicine; ATTEND Internal Medicine
DX: J96.21 Acute and chronic respiratory failure with hypoxia (principal); J44.1 Chronic obstructive pulmonary disease with (acute) exacerbation; H40.9 Unspecified glaucoma; I10 Essential (primary) hypertension; J84.10 Pulmonary fibrosis, unspecified; J96.22 Acute and chronic respiratory failure with hypercapnia; K44.9 Diaphragmatic hernia without obstruction or gangrene; M15.9 Polyosteoarthritis, unspecified; M81.0 Age-related osteoporosis without current pathological fracture; Z80.49 Family history of malignant neoplasm of other genital organs; Z82.49 Family history of ischemic heart disease and other diseases of the circulatory system; Z90.12 Acquired absence of left breast and nipple; Z87.891 Personal history of nicotine dependence; Z90.710 Acquired absence of both cervix and uterus; Z98.41 Cataract extraction status, right eye; Z98.42 Cataract extraction status, left eye
CPT/HCPCS: 36415; 71045; 71046; 80053; 81001; 85025; 87086; 94640; 96374; J1650; J2920; J2930; J7613; J7620; Q0162; 97110; 97116; 99291-25; J7030

== ENCOUNTER 2019-09-03 18:37 | Observation (INO) | payer MEDICARE, BC ==
[~2019-09-03] VITALS: Ht 152.4 cm; Wt 54.7 kg
[~2019-09-03 18:37] MED LIST changes: +ACET500T68 PO; +ALBU2.5V14 NEB; +DOCU-109 PO; +GLUC1CAP48 PO; +GUAI600T47 PO; +LIDO700A21 TP; +LOPE2CAP PO; +MONT10TA80 PO; +OMEP40CA45 PO; -OMEP40CA5 PO; +ONDA4TAB7 PO; +OXYC5TAB4 PO; +POLY17PO5 PO; +POTA10TA10 PO
[2019-09-03] MEDS ORDERED: IV NORMAL SALINE 500ML 500 ML IV ONE (19:15)
--- NOTE | 2019-09-03 19:18 | PHYS DOC ---
Past History Past Medical History: COPD, Hypertension, Other Additional Past Medical Histor: compression fx throughout back Past Surgical History: Hysterectomy, Other Smoking: Non-smoker, Quit Greater Than 1 Year Alcohol Use: None Drug Use: None Adult General Chief Complaint Chief Complaint: BACK PAIN OR INJURY HPI HPI 89-year-old female presents with low back pain. The patient woke up yesterday and was feeling fine. She believes she twisted in an unusual way and had a feeling of some central back pain. By yesterday evening, the pain increased significantly. She denies falls or trauma. She woke up today and she is continued to have pain all day today. She has a history of compression fractures. She is also complaining of some increased urinary frequency. She denies fever, chills, numbness or altered sensation. She denies any other symptoms. Review of Systems Review of Systems Constitutional: Denies fever or chills [] Eyes: Denies change in visual acuity, redness, or eye pain [] HENT: Denies nasal congestion or sore throat [] Respiratory: Denies cough or shortness of breath [] Cardiovascular: No additional information not addressed in HPI [] GI: Denies abdominal pain, nausea, vomiting, bloody stools or diarrhea [] : Denies dysuria or hematuria [] Musculoskeletal: Lower back pain[] Integument: Denies rash or skin lesions [] Neurologic: Denies headache, focal weakness or sensory changes [] Endocrine: Denies polyuria or polydipsia [] All other systems were reviewed and found to be within normal limits, except as documented in this note. Current Medications Current Medications Current Medications Medications (Trade) Dose Ordered Sig/Joel Start Time Stop Time Status Last Admin Dose Admin Sodium Chloride 500 ml @ 0 mls/hr 1X ONCE 09/03/19 19:15 09/03/19 19:16 Allergies Allergies Allergies Coded Allergies Type Severity Reaction Last Updated Verified I S O L A T I O N *CONTACT* Allergy Unknown 05/23/17 Yes NKMA Allergy Unknown 05/23/17 Yes Physical Exam Physical Exam Constitutional: Well developed, well nourished, no acute distress, non-toxic appearance. [] HENT: Normocephalic, atraumatic, bilateral external ears normal, oropharynx moist, no oral exudates, nose normal. [] Eyes: PERRLA, EOMI, conjunctiva normal, no discharge. [] Neck: Normal range of motion, no tenderness, supple, no stridor. [] Cardiovascular: Heart rate regular rhythm, no murmur [] Lungs & Thorax: Bilateral breath sounds clear to auscultation [] Abdomen: Bowel sounds normal, soft, no tenderness, no masses, no pulsatile masses. [] Skin: Warm, dry, no erythema, no rash. [] Back: The patient is tender over the L3-L5 bony prominences. No step-offs.[] Extremities: No tenderness, no cyanosis, no clubbing, ROM intact, no edema. [] Neurologic: Alert and oriented X 3, normal motor function, normal sensory function, no focal deficits noted. [] Psychologic: Affect normal, judgement normal, mood normal. [] Current Patient Data Vital Signs Vital Signs Date Time Temp Pulse Resp B/P (MAP) Pulse Ox O2 Delivery O2 Flow Rate FiO2 09/03/19 19:06 86 18 133/79 (97) 93 3.0 EKG EKG [] Radiology/Procedures Radiology/Procedures [] Course & Med Decision Making Course & Med Decision Making Pertinent Labs and Imaging studies reviewed. (See chart for details) The patient appears to have a urinary tract infection. I will treat her with Rocephin IV in the emergency room followed by 10 more days of Cefdinir. [] Dragon Disclaimer Dragon Disclaimer This electronic medical record was generated, in whole or in part, using a voice recognition dictation system. Departure Departure: Impression: Primary Impression: UTI (lower urinary tract infection) Disposition: HOME, SELF-CARE Condition: STABLE Referrals: MARIAN SHETH MD (PCP) Patient Instructions: Urinary Tract Infection, [id number] Scripts Cefdinir (CEFDINIR) 300 Mg Capsule 2 CAP PO DAILY for UTI for 10 Days, #20 CAP Prov: ASHER EASON DO 09/03/19 ASHER EASON DO Sep 03, 2019 19:18
[2019-09-03 19:44] LABS: BASO % 1 % (0-3); EOS # 0.3 x10^3/uL (0.0-0.7); EOS % 4 % (0-3); HEMATOCRIT 37.5 % (36.0-47.0); HEMOGLOBIN 12.2 g/dL (12.0-15.5); LYMPH # 2.2 x10^3/uL (1.0-4.8); LYMPH % 29 % (24-48); MEAN CORPUSCULAR HEMOGLOBIN 31 pg (25-35); MEAN CORPUSCULAR HGB CONC 33 g/dL (31-37); MEAN CORPUSCULAR VOLUME 95 fL (79-100); MONO # 0.6 x10^3/uL (0.0-1.1); MONO % 9 % (0-9); NEUT # 4.3 x10^3uL (1.8-7.7); NEUT % 58 % (31-73); PLATELET COUNT 172 x10^3/uL (140-400); RED BLOOD COUNT 3.96 x10^6/uL (3.50-5.40); RED CELL DISTRIBUTION WIDTH 13.5 % (11.5-14.5); WHITE BLOOD COUNT 7.4 x10^3/uL (4.0-11.0)
[2019-09-03 19:52] LABS: CALCIUM 8.7 mg/dL (8.5-10.1); CREATININE 0.6 mg/dL (0.6-1.0); GFR 94.3; POTASSIUM 4.4 mmol/L (3.5-5.1)
[2019-09-03 19:53] LABS: BACTERIA,URINE MANY /HPF (0-FEW); BILIRUBIN,URINE NEG (NEG); CLARITY,URINE TURBID; COLOR,URINE YELLOW; GLUCOSE,URINE NEG (NEG); NITRITE,URINE POS (NEG); RBC,URINE 0 /HPF (0-2); SQUAMOUS EPITHELIAL CELL,UR OCC /LPF; UROBILINOGEN,URINE 0.2 mg/dL (0.2 mg/dL)
[2019-09-03 19:57] LABS: ALBUMIN 3.7 g/dL (3.4-5.0); ALBUMIN/GLOBULIN RATIO 1.2 (1.0-1.7); TOTAL BILIRUBIN 0.1 mg/dL (0.2-1.0); TOTAL PROTEIN 6.8 g/dL (6.4-8.2)
[2019-09-03] MEDS ORDERED: CEFD300C PO (20:19)
[2019-09-03] MEDS ORDERED: IV NORMAL SALINE 50ML 50 ML ONE (20:19)
[2019-09-03] MEDS ORDERED: cefTRIAXone SODIUM 1 GM VIAL ONE (20:19)
--- NOTE | 2019-09-03 21:53 | RAD ---
Exam: Lumbar spine 3 views INDICATION: Central back pain, history of compression fracture TECHNIQUE: Frontal and lateral views lumbar spine with spot medication view of the lumbosacral junction Comparisons: CT 05/19/2018 FINDINGS: There is compression deformity involving the L3 vertebral body with approximately 25 percent height loss at the superior endplate. Compression deformity of the L5 vertebral body with approximately 25 percent height loss. No significant retropulsion. Kyphoplasty changes are noted at T12 and L1. Mild bilateral facet arthropathy is noted throughout the lumbar spine. Visualized paraspinal soft tissues are unremarkable. IMPRESSION: Compression deformities involving the superior endplates of L3 and L5 which are new when compared to the CT in 2018, however age indeterminate. Correlate with point tenderness. Electronically signed by: Jorge Dee MD (09/03/2019 9:50 PM) [id number]
[2019-09-03] MEDS ORDERED: HYDROcodone/APAP 5/325MG 1 TAB TABLET PO ONE (22:00)
[2019-09-03] MEDS ORDERED: MORPHINE SULFATE 2 MG/ML DISP.SYRIN. IV ONE (22:00)
[2019-09-03] MEDS ORDERED: ONDANSETRON PF 4 MG/2 ML VIAL. IV PRN (23:45)
[2019-09-03] MEDS ORDERED: MORPHINE SULFATE 2 MG/ML DISP.SYRIN. IV PRN (23:45)
[2019-09-04 00:59] VITALS: BP 138/72
[2019-09-04] MEDS ORDERED: MULT-237 PO (01:05)
[2019-09-04] MEDS ORDERED: CALC-56 PO (01:05)
[2019-09-04] MEDS ORDERED: POTA20TA4 PO (01:05)
[2019-09-04] MEDS ORDERED: CRAN450T3 PO (01:05)
[2019-09-04] MEDS ORDERED: ALEN70TA3 PO (01:05)
[2019-09-04] MEDS ORDERED: GLUC1CAP48 PO (01:05)
[2019-09-04 06:27] VITALS: BP 132/52
[2019-09-04] MEDS ORDERED: ACETAMINOPHEN 500 MG TABLET PO PRN (06:30)
[2019-09-04] MEDS ORDERED: DOCUSATE SODIUM 100 MG CAPSULE PO PRN (06:30)
[2019-09-04] MEDS ORDERED: POLYETHYLENE GLYCOL 3350 17 GM PACKET. PO PRN (06:30)
[2019-09-04] MEDS ORDERED: ACETAMINOPHEN 325 MG TABLET PO PRN (07:00)
[2019-09-04] MEDS ORDERED: PANTOPRAZOLE 40 MG TABLET. PO SCH (07:30)
[2019-09-04] MEDS ORDERED: POTASSIUM CHLORIDE 20 MEQ TABLET.ER. PO SCH (08:00)
[2019-09-04] MEDS ORDERED: ASPIRIN 81 MG TAB.CHEW PO SCH (08:00)
[2019-09-04] MEDS ORDERED: CALCIUM CARB/VIT D3 500/200 TABLET PO SCH (09:00)
[2019-09-04] MEDS ORDERED: amLODIPine BESYLATE 10 MG TABLET PO SCH (09:00)
[2019-09-04] MEDS ORDERED: MONTELUKAST 10 MG TABLET. PO SCH (09:00)
[2019-09-04] MEDS ORDERED: MULTIVITAMIN with MINERAL TABLET. PO SCH (09:00)
[2019-09-04] MEDS ORDERED: CRANBERRY FRUIT 450 MG PO SCH (09:00)
[2019-09-04] MEDS ORDERED: GLUCOSAMINE/CHOND 500/400MG CAPSULE PO SCH (09:00)
[2019-09-04 10:21] VITALS: BP 138/88
[2019-09-04] MEDS: IPRATRPIUM/ALBUTEROL 0.5/2.5MG 3 ML NEBU. NEB SCH ×2 (10:32→13:01)
[2019-09-04] MEDS ORDERED: CEFD300C PO (13:48)
[2019-09-04] MEDS ORDERED: ONDANSETRON ODT 4 MG TAB.RAPDIS PO SCH (14:00)
--- NOTE | 2019-09-04 14:41 | SSS ---
ADMIT DATE: 09/04/2019 HISTORY OF PRESENT ILLNESS: The patient is an 89-year-old female patient, a resident at [facility], who apparently was brought to the Emergency Room with a complaint of back pain. The patient woke up and was feeling fine. She believes she twisted unusual way and had a feeling of some central back pain. By yesterday evening, the pain increased significantly. She denies any fall or trauma. She woke up yesterday morning and continued to have pain all day today. On admission, she has a history of compression fracture, is also complaining of some increased urinary frequency. She denies any fever, chills, numbness, or altered sensation. She was evaluated in the Emergency Room. Her lab work was essentially unremarkable. Urinalysis showed the urine was yellow, turbid with a pH of 6.5. The urine was negative for protein, glucose, ketones. There was trace of blood, positive for nitrite, negative for leukocyte esterase, was only 5-10 wbc's and many bacteria. She has had x-ray of her lumbar spine, which basically showed that she has compression deformities involving the superior endplate of L3 and L5, which are new when compared to CT scan of 2018. However, age indeterminate, correlate with point tenderness and basically when I saw her today, she was sitting comfortably in her chair. Denied any complaint, in particular denied any more pain and has been up and about walking with a walker and ready to go home. PAST MEDICAL HISTORY: Significant for chronic obstructive pulmonary disease, chronic hypoxic respiratory failure, hypertension, generalized osteoarthritis, osteoporosis, glaucoma. She had a history of fall with right clavicular fracture, treated conservatively with a sling. She also has a history of compression fracture of her lumbar spine, treated with vertebroplasty. PAST SURGICAL HISTORY: Significant for bilateral cataract extraction, tonsillectomy, left mastectomy, total abdominal hysterectomy, bilateral salpingo-oophorectomy, and vertebroplasty. ALLERGIES: She has no known drug allergies. FAMILY HISTORY: She has 3 sisters, one sister had coronary artery disease and she is morbidly obese, one sister underwent knee and hip replacement. The younger sister is seemingly healthy. Her father at age of 70 and mother in her 60s due to uterine cancer. SOCIAL HISTORY: She is , has 1 daughter and 2 sons. She is currently living at [facility]. She used to go to [place] in wintertime where she lives with her sister in a trailer park and comes back, usually at the end of November. She is an ex-smoker, quit in 1981. She smoked for 35 years, 1 pack a day. She does not drink alcohol. She worked for [employer] for 33 years. MEDICATIONS: She is currently on following medications: She is on amlodipine besylate 10 mg once a day, aspirin 81 mg once a day, acetaminophen 650 mg p.o. q. 6 hourly, calcium carbonate with vitamin D one tablet once a day, potassium chloride 20 mEq once a day. She is on Singulair 10 mg once a day, loperamide 2 mg 3 times a day as needed, Colace 100 mg twice a day as needed. Polyethylene glycol 17 grams daily, ondansetron 4 mg, Zofran every 8 hours, omeprazole 40 mg daily, multivitamin 1 tablet once a day, alendronate sodium 70 mg every Tuesday, cranberry fruit 450 mg daily and glucosamine/chondroitin sulfate 1 capsule daily. REVIEW OF SYSTEMS: As per history of present illness. PHYSICAL EXAMINATION: GENERAL: On arrival to the Emergency Room, she looked well and was clearly in no apparent respiratory distress. She was pale, but no jaundice, cyanosis or thyromegaly. No jugular venous distention. No limb edema. VITAL SIGNS: Her heart rate was 68, blood pressure 155/64, temperature was 98.8, oxygen saturation was 100% on 3 liters of oxygen. HEAD, EYES, EARS, NOSE AND THROAT: Showed normocephalic, atraumatic. NECK: Supple. HEART: Showed normal first and second heart sounds. No gallop or murmur. CHEST: Clear to auscultation. No crepitation or rhonchi. ABDOMEN: Distended, soft, nontender. NEUROLOGIC: She is currently well-developed, well-nourished, in no acute distress. The patient is tender over the L3-L4 bony prominences, no strep off. She was alert, oriented x 3 with normal motor and sensory function, no focal deficit. Affect and judgment and mood were normal. EXTREMITIES: Showed no clubbing, cyanosis or edema. LABORATORY DATA: Showed a white cell count 7400, hemoglobin 12.2, hematocrit 37.5, MCV 95, and platelet count of 172,000. Her serum sodium was 145, potassium 4.4, chloride 105, bicarbonate 32, anion gap of 8, BUN 19, creatinine 0.6, estimated GFR was 94 mL per minute. Her glucose 107, calcium was 8.7. Total bilirubin, AST, ALT, alkaline phosphatase were normal. Total protein was 6.8, albumin 3.7. Her white cell count was 7400, hemoglobin 12, hematocrit 37, MCV 95, and platelet count of 172,000. ASSESSMENT AND PLAN: In summary, this is an 89-year-old female patient who was admitted with exacerbation of her back pain. Her lumbar spine x-ray showed that she has compression deformities involving the superior endplate of L3 and L5, which are new when compared to CT scan done in 2018; however, age indeterminate, correlate with point tenderness. She has bacteriuria and leukocyturia. She was treated with IV Rocephin. The plan is to discharge her back to [facility] and to continue with oral cefdinir. I will discuss with the family the need to do probably an MRI and consider perhaps vertebroplasty for L3-L4. LEORA ELY MD DR: NATHANAEL/mary JOB#: [id number] / [id number]
[2019-09-04] MEDS ORDERED: LACTOBACILLUS RHAMNOSUS GG 1 CAPSULE. PO SCH (21:00)
== END 2019-09-04 14:53 | disposition home or self-care (01) ==
LOC: ER 18:37 → INTOOBSV 22:00 → 1 SOUTH 22:00
PROVIDERS: ADMIT Internal Medicine; ATTEND Internal Medicine
DX: N39.0 Urinary tract infection, site not specified (principal); J44.9 Chronic obstructive pulmonary disease, unspecified; I10 Essential (primary) hypertension; Z90.710 Acquired absence of both cervix and uterus; M81.0 Age-related osteoporosis without current pathological fracture; M15.9 Polyosteoarthritis, unspecified; Z87.891 Personal history of nicotine dependence; Z90.12 Acquired absence of left breast and nipple; Z98.41 Cataract extraction status, right eye; Z98.42 Cataract extraction status, left eye
CPT/HCPCS: 36415; 72100; 80053; 81001; 85025; 87086; 87641; 96365; 96375; 97161; G0378; G0379; J0696; J2270; J7040; J7620; 99284

== ENCOUNTER 2020-04-28 12:34 | Inpatient (IN) | payer MEDICARE, BC ==
[~2020-04-28] VITALS: Ht 147.3 cm; Wt 48.6 kg
[~2020-04-28 12:34] MED LIST changes: +CALC-56 PO; +CEFD300C PO; +CRAN450T3 PO; +MULT-237 PO; +POTA20TA4 PO
[2020-04-28] MEDS ORDERED: ACETAMINOPHEN 325 MG TABLET PO ONE (13:15)
--- NOTE | 2020-04-28 13:17 | PHYS DOC ---
Past History Past Medical History: Anxiety, Constipation, COPD, GERD, Glaucoma, Hypertension, Pneumonia, Other Additional Past Medical Histor: COLLAPSED VERRTEBRA Past Surgical History: Appendectomy, Other Additional Past Surgical Histo: BACK SURGERIES Smoking: Non-smoker, Quit Greater Than 1 Year Alcohol Use: None Drug Use: None General Adult EDM: Chief Complaint: OTHER COMPLAINTS HPI: HPI: 89-year-old female presents via EMS with shortness of breath. She is on 2 to 3 L of oxygen at baseline at home. She feels like she has worse shortness of breath especially with exertion yesterday and today. She denies chest pain, nausea, vomiting, or diarrhea. She has no pain. She has a history of COPD but does not smoke anymore. [id number] history. She did not have a fever at home. On arrival to the emergency room she is 100.8. No known COVID-19 contacts. Review of Systems: Review of Systems: Constitutional: Denies fever or chills Eyes: Denies change in visual acuity HENT: Denies nasal congestion or sore throat Respiratory: shortness of breath Cardiovascular: Denies chest pain or edema GI: Denies abdominal pain, nausea, vomiting, bloody stools or diarrhea : Denies dysuria Musculoskeletal: Denies back pain or joint pain Integument: Denies rash Neurologic: Denies headache, focal weakness or sensory changes Endocrine: Denies polyuria or polydipsia Lymphatic: Denies swollen glands Psychiatric: Denies depression or anxiety Current Medications: Current Meds: Current Medications Medications (Trade) Dose Ordered Sig/Joel Start Time Stop Time Status Last Admin Dose Admin Acetaminophen (Tylenol) 650 mg 1X ONCE 04/28/20 13:15 04/28/20 13:16 UNV Allergies: Allergies: Allergies Coded Allergies Type Severity Reaction Last Updated Verified I S O L A T I O N *CONTACT* Allergy Unknown 04/28/20 Yes NKMA Allergy Unknown 04/28/20 Yes Physical Exam: PE: Constitutional: Well developed, well nourished, no acute distress, non-toxic appearance. [] HENT: Normocephalic, atraumatic, bilateral external ears normal, oropharynx moist, no oral exudates, nose normal. [] Eyes: PERRLA, EOMI, conjunctiva normal, no discharge. [] Neck: Normal range of motion, no tenderness, supple, no stridor. [] Cardiovascular: Heart rate regular rhythm, no murmur [] Lungs & Thorax: Bilateral breath sounds diminished but clear to auscultation [] Abdomen: Bowel sounds normal, soft, no tenderness, no masses, no pulsatile masses. [] Skin: Warm, dry, no erythema, no rash. [] Back: No tenderness, no CVA tenderness. [] Extremities: No tenderness, no cyanosis, no clubbing, ROM intact, no edema. [] Neurologic: Alert and oriented X 3, normal motor function, normal sensory function, no focal deficits noted. [] Psychologic: Affect normal, judgement normal, mood normal. [] Current Patient Data: Vital Signs: Vital Signs Date Time Temp Pulse Resp B/P (MAP) Pulse Ox O2 Delivery O2 Flow Rate FiO2 04/28/20 12:39 100.8 80 21 152/70 (97) 99 Nasal Cannula EKG: EKG: Sinus rhythm, rate 84, normal axis, no ST elevations or depressions. [] Radiology/Procedures: Radiology/Procedures: [] Impressions: EXAM: CHEST AP ONLY 04/28/2020 1:11 PM CLINICAL INDICATION:Shortness of breath COMPARISON:Chest 06/25/2018 TECHNIQUE:AP view of the chest FINDINGS:The cardiomediastinal silhouette is stable. Lungs are well-expanded. There is no focal opacity, pleural effusion, or pneumothorax. A calcified granuloma in the left lung. There is a skinfold along the left lateral hemithorax. Severe right glenohumeral osteoarthrosis noted. There is bone cement in several lower thoracic vertebral bodies. IMPRESSION:No acute cardiopulmonary abnormality Electronically signed by: Lin Centeno MD (04/28/2020 1:48 PM) [id number] DICTATED AND SIGNED BY: LIN CENTENO MD DATE: 04/28/20 1348 CC: ASHER EASON DO; MARIAN SHETH MD ~ Heart Score: Risk Factors: Risk Factors: DM, Current or recent (<one month) smoker, HTN, HLP, family history of CAD, obesity. Risk Scores: Score 0 - 3: 2.5% MACE over next 6 weeks - Discharge Home Score 4 - 6: 20.3% MACE over next 6 weeks - Admit for Clinical Observation Score 7 - 10: 72.7% MACE over next 6 weeks - Early Invasive Strategies Course & Med Decision Making: Course & Med Decision Making Pertinent Labs and Imaging studies reviewed. (See chart for details) The patient's CBC is unremarkable. Her other labs show a decreased anion gap. Her urinalysis is significant for urinary tract infection. She did have a fever 100.8 on arrival. She was given 650 of Tylenol. I will order blood cultures and lactic acid. I will give her a gram of Rocephin. I spoke with Dr. Mckinley and he has accepted the patient for admission. [] Dragon Disclaimer: Dragon Disclaimer: This electronic medical record was generated, in whole or in part, using a voice recognition dictation system. Departure Departure: Impression: Primary Impression: UTI (lower urinary tract infection) Disposition: 09 ADMITTED INPT THIS HOSP Admitting Physician: Slade Mckinley Condition: STABLE Referrals: MARIAN SHETH MD (PCP) ASHER EASON DO Apr 28, 2020 13:17
[2020-04-28 13:46] LABS: BASO % 0 % (0-3); EOS # 0.1 x10^3/uL (0.0-0.7); EOS % 1 % (0-3); HEMATOCRIT 36.9 % (36.0-47.0); HEMOGLOBIN 12.1 g/dL (12.0-15.5); LYMPH % 10 % (24-48); MEAN CORPUSCULAR HEMOGLOBIN 31 pg (25-35); MEAN CORPUSCULAR HGB CONC 33 g/dL (31-37); MEAN CORPUSCULAR VOLUME 94 fL (79-100); MONO # 0.9 x10^3/uL (0.0-1.1); MONO % 9 % (0-9); NEUT # 8.4 x10^3uL (1.8-7.7); NEUT % 81 % (31-73); PLATELET COUNT 156 x10^3/uL (140-400); RED BLOOD COUNT 3.95 x10^6/uL (3.50-5.40); RED CELL DISTRIBUTION WIDTH 13.3 % (11.5-14.5); WHITE BLOOD COUNT 10.4 x10^3/uL (4.0-11.0)
--- NOTE | 2020-04-28 13:50 | RAD ---
EXAM: CHEST AP ONLY 04/28/2020 1:11 PM CLINICAL INDICATION:Shortness of breath COMPARISON:Chest 06/25/2018 TECHNIQUE:AP view of the chest FINDINGS:The cardiomediastinal silhouette is stable. Lungs are well-expanded. There is no focal opacity, pleural effusion, or pneumothorax. A calcified granuloma in the left lung. There is a skinfold along the left lateral hemithorax. Severe right glenohumeral osteoarthrosis noted. There is bone cement in several lower thoracic vertebral bodies. IMPRESSION:No acute cardiopulmonary abnormality Electronically signed by: Lin Centeno MD (04/28/2020 1:48 PM) [id number]
[2020-04-28 14:01] LABS: CALCIUM 9.5 mg/dL (8.5-10.1); CREATININE 0.5 mg/dL (0.6-1.0); GFR 116.4; POTASSIUM 4.1 mmol/L (3.5-5.1)
[2020-04-28 14:15] LABS: ALBUMIN 3.7 g/dL (3.4-5.0); TOTAL BILIRUBIN 0.5 mg/dL (0.2-1.0); TOTAL PROTEIN 7.5 g/dL (6.4-8.2)
[2020-04-28 14:26] LABS: BILIRUBIN,URINE NEG (NEG); CLARITY,URINE HAZY; COLOR,URINE YELLOW; GLUCOSE,URINE NEG (NEG); NITRITE,URINE POS (NEG)
[2020-04-28 14:27] LABS: BACTERIA,URINE MANY /HPF (0-FEW)
--- NOTE | 2020-04-28 15:12 | EKG ---
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
[2020-04-28] MEDS ORDERED: IV NORMAL SALINE 50ML 50 ML ONE (16:14)
[2020-04-28] MEDS ORDERED: cefTRIAXone SODIUM 1 GM VIAL ONE (16:14)
[2020-04-28] MEDS ORDERED: ONDANSETRON PF 4 MG/2 ML VIAL. IVP PRN ×2 (17:45→18:30)
--- NOTE | 2020-04-28 17:59 | HP ---
ADMIT DATE: 04/28/2020 ATTENDING PHYSICIAN: Dr. Humphrey. CHIEF COMPLAINT: Shortness of breath. HISTORY OF PRESENT ILLNESS: The patient is an 89-year-old female, currently in independent living at [facility]. She comes into the ED complaining of shortness of breath. She had severe end-stage oxygen dependent COPD. She is on 2-3 liters of oxygen with exertion. She was found to have a urinary tract infection. She is admitted then with a temperature of 100.8 degrees Fahrenheit. No COVID-19 exposure. She is admitted then with exacerbation of COPD and a concomitant UTI. PAST MEDICAL HISTORY: Significant for generalized anxiety, constipation, advanced COPD, gastroesophageal reflux disease, glaucoma, hypertension, pneumonia and compression fractures. She has severe osteoporosis. CURRENT MEDICATIONS: Reviewed from [facility]. They include the following: She was on scheduled albuterol along with Tylenol, Fosamax weekly, amlodipine, aspirin, calcium, cefdinir, cranberry juice, docusate, loperamide, montelukast, multivitamin, omeprazole, MiraLax, and potassium supplementation. ALLERGIES: She has no known drug allergies. SOCIAL HISTORY: She was a heavy smoker up until last year. She is single. She has a daughter that lives in town. She has very limited ability to walk due to her lung disease. She is on chronic oxygen. FAMILY HISTORY: Noncontributory. REVIEW OF SYSTEMS: Significant for weight loss, poor appetite, generalized weakness, chronic shortness of breath. No recent fever, chills or cough. All other systems reviewed and turned to be negative. PHYSICAL EXAMINATION: GENERAL: When I saw her, this is a pleasant, but cachectic, elderly female. INITIAL VITAL SIGNS: Showed a blood pressure of 149/65, pulse is 81 and regular, temperature 100.8 degrees Fahrenheit, oxygen saturation 93% on 2 liters of nasal cannula. HEENT: Head is without trauma. Pupils are reactive. Sclerae are nonicteric. The oropharynx is clear. NECK: Supple. LUNGS: Diffuse wheezing bilaterally. CARDIOVASCULAR: Showed regular heart tones. No gallops. ABDOMEN: Soft, no guarding. EXTREMITIES: Showed no cyanosis. She has significant muscle wasting. There is no muscle nor fat. NEUROLOGIC: Focally intact. Speech is fluent. She has no focal deficits. PERTINENT X-RAY STUDIES: Chest x-ray on admission showed no cardiopulmonary abnormality. Lungs are hyperexpanded. There are no infiltrates. There is severe glenohumeral osteoarthrosis, bone cement in several lower thoracic vertebral bodies from previous compression fractures. PERTINENT LABORATORY STUDIES: Hemoglobin is maintained at 12.1 g/dL, white count 10,400. Electrolytes within normal range. Cardiac enzymes negative. BNP is 596. ASSESSMENT: 1. An 89-year-old female with exacerbation of chronic obstructive pulmonary disease, oxygen dependent. 2. Urinary tract infection. 3. Severe osteoporosis. 4. Generalized debilitation. 5. Protein-calorie malnutrition and cachexia. 6. Pulmonary hypertension. 7. Generalized debilitation. 8. Essential hypertension. PLAN: 1. Admit to the inpatient unit. 2. Empiric antibiotics have been started. 3. Supplemental oxygen. 4. Continue home meds and nebulizers. 5. Await the results of urine cultures. SAADIA HUMPHREY MD DR: MATEO/mary JOB#: [id number] / [id number] ecc MARIAN SHETH MD
--- NOTE | 2020-04-28 18:00 | NUR ---
The patient, ELAINE BELCHER, 89 y/o, F admitted by SAADIA HUMPHREY MD, was given written information regarding hospital policies, unit procedures and contact persons. Valuables were checked and left with patient Pt brought to room 6 in ICU by EMS and ED staff by trace with 3L of supplemental oxygen. A&O x4, able to answer all questions and verbalize understanding. VSS.
[2020-04-28 18:32] VITALS: BP 105/77
[2020-04-28 19:20] VITALS: BP 148/92
[2020-04-28 20:00] VITALS: BP 137/68
[2020-04-28] MEDS ORDERED: SALM50DI IH (20:56)
[2020-04-28] MEDS ORDERED: BRIM5DRO2 EACHEYE (20:56)
[2020-04-28] MEDS ORDERED: HYDR-3165 PO (20:56)
[2020-04-28] MEDS ORDERED: ALBU6.7H8 IH (20:56)
[2020-04-28] MEDS ORDERED: ACET325T21 PO (20:56)
[2020-04-28] MEDS ORDERED: LIDO700A21 TP (20:56)
[2020-04-28] MEDS ORDERED: IPRA0.2S5 IH (20:56)
[2020-04-28] MEDS ORDERED: OMEP20TA63 PO (20:56)
[2020-04-28] MEDS ORDERED: HYDROcodone/APAP 5/325MG 1 TAB TABLET PO PRN (21:45)
[2020-04-28] MEDS ORDERED: LOPERAMIDE 2 MG CAPSULE PO PRN (21:45)
[2020-04-28] MEDS ORDERED: POLYETHYLENE GLYCOL 3350 17 GM PACKET. PO PRN (21:45)
[2020-04-28] MEDS ORDERED: ONDANSETRON ODT 4 MG TAB.RAPDIS PO PRN (22:00)
[2020-04-28] MEDS: IPRATROPIUM BROMIDE 0.5 MG/2.5 ML NEBU. IH SCH (22:02)
[2020-04-28] MEDS: ACETAMINOPHEN 325 MG TABLET PO PRN (22:02)
[2020-04-28 22:20] VITALS: BP 149/83
[2020-04-29 01:05] VITALS: BP 121/67
--- NOTE | 2020-04-29 03:35 | NUR ---
Pt awake in bed watching TV at change of shift. Pt is A&O x4, pleasant and cooperative with assessment. Pt incont of urine in brief. When incontinence care performed, Pt with increased SOA with O2 sat ranging from 86-88% on 3L NC and pursed lip breathing. HOB elevated, O2 increased to 4L NC and 2 pillows placed under back/head for comfort. Pt was given HS neb with improvement of SOA. Purewick placed for ease of breathing & turning. Dr. Mckinley called for home medication restart. Pt ate small amount of yogurt before bed. Pt slept good from 2230 till morning.
[2020-04-29] MEDS ORDERED: IPRATRPIUM/ALBUTEROL 0.5/2.5MG 3 ML NEBU. ONE (04:42)
[2020-04-29] MEDS: IPRATROPIUM BROMIDE 0.5 MG/2.5 ML NEBU. IH SCH (04:48)
[2020-04-29] MEDS: ALBUTEROL SULFATE 2.5 MG/3 ML NEBU. NEB SCH ×2 (04:49→11:28)
[2020-04-29 05:20] VITALS: BP 127/57
--- NOTE | 2020-04-29 06:21 | NUR ---
IP: patient PUI for COVID-19, requires contact and airborne precautions.
[2020-04-29] MEDS: PANTOPRAZOLE 40 MG TABLET. PO SCH (08:06)
[2020-04-29] MEDS: GLUCOSAMINE/CHOND 500/400MG CAPSULE PO SCH (08:06)
[2020-04-29] MEDS: amLODIPine BESYLATE 10 MG TABLET PO SCH (08:06)
[2020-04-29] MEDS: TIMOLOL 0.5% OPHTH SOLUTION 5ML BOTTLE. OU SCH ×2 (08:06→20:42)
[2020-04-29] MEDS: BRIMONIDINE 0.2% OPHTH SOLUTION 5ML BOTTLE. OU SCH ×2 (08:06→20:42)
[2020-04-29] MEDS: MULTIVITAMIN with MINERAL TABLET. PO SCH (08:09)
[2020-04-29] MEDS: CALCIUM CARB/VIT D3 500/200 TABLET PO SCH (08:09)
[2020-04-29] MEDS: LIDOCAINE (700MG/PATCH) PATCH. TP SCH ×2 (08:09→09:00)
[2020-04-29] MEDS: POTASSIUM CHLORIDE 20 MEQ TABLET.ER. PO SCH (08:09)
[2020-04-29] MEDS: ASPIRIN CHEWABLE 81 MG TABLET. PO SCH (08:09)
[2020-04-29] MEDS: MONTELUKAST 10 MG TABLET. PO SCH (08:11)
[2020-04-29] MEDS ORDERED: ALBUTEROL SULFATE 8GM INHALER. IH SCH (09:00)
[2020-04-29] MEDS ORDERED: CRANBERRY FRUIT 450 MG PO SCH (09:00)
[2020-04-29] MEDS ORDERED: NON FORMULARY ITEM (Omeprazole Magnesium (Prilosec Otc) 20 MG) PO SCH (09:00)
--- NOTE | 2020-04-29 09:00 | NUR ---
Pt alert and oriented, fever 101.9, tylenol given, pt request meds given with noon lunch-does not eat breakfast. 1030 temp recheck down to 99.0 1200 Pt ate lunch, tolerated well. 1300 Rocephin IV x1 ordered per HO 1730 pt fever 101.8, tylenol given, no pain, sob spo2 84%, oxygen 4Lnc. coached pt to calm down and breathe, pt had treatment at 1630 1745 pt calm, sp02 91%, pt expressed she felt better
[2020-04-29] MEDS: ACETAMINOPHEN 325 MG TABLET PO PRN ×2 (09:19→17:55)
[2020-04-29 10:20] VITALS: BP 118/57
--- NOTE | 2020-04-29 10:46 | PN ---
DATE: 04/29/2020 ATTENDING PHYSICIAN: Dr. Humphrey. CHIEF COMPLAINT: Shortness of breath. SUBJECTIVE: She is breathing better. She has not gone on her morning meds. Her temperature is down. Her urine culture is pending. OBJECTIVE FINDINGS: Preliminary cultures of urine showed greater than 100,000 colonies of gram-negative rods, most likely E. coli. ID and sensitivities pending. VITAL SIGNS: Heart rate is 83 per minute, fluctuating to 110, blood pressure 127/57, oxygen saturation 97% on 3 liters nasal cannula, which is her baseline. Temperature is 98.7 degrees Fahrenheit. HEENT: Head is without trauma. Pupils are reactive. Sclerae nonicteric. Oropharynx clear. NECK: Supple, no bruits. LUNGS: Shallow respirations, but good breath sounds. CARDIOVASCULAR: Showed regular heart tones. No gallops. ABDOMEN: Soft. EXTREMITIES: Showed no cyanosis. There is significant muscle wasting. NEUROLOGIC: Focally intact. Speech is fluent. SKIN: Warm and dry. ASSESSMENT: 1. An 89-year-old female with exacerbation of chronic obstructive pulmonary disease, oxygen dependent. 2. Urinary tract infection. ID and sensitivity pending. 3. Severe osteoporosis. 4. Generalized debilitation. 5. Protein-calorie malnutrition. 6. Pulmonary hypertension. 7. Generalized debilitation. 8. Essential hypertension. PLAN: 1. Continue antibiotics as ordered. 2. She has a COVID-19 swab pending. Once the COVID swab is negative, she can return to [facility] with oral antibiotics. We are also waiting for the ID and sensitivity of the positive urine cultures. SAADIA HUMPHREY MD DR: MATEO/mary JOB#: [id number] / [id number]
[2020-04-29] MEDS ORDERED: NON FORMULARY ITEM (Salmeterol Xinafoate (Serevent Diskus) 50 MCG) IH SCH (11:30)
[2020-04-29 15:00] VITALS: BP 127/72
[2020-04-29] MEDS: IPRATRPIUM/ALBUTEROL 0.5/2.5MG 3 ML NEBU. NEB SCH ×2 (16:29→20:33)
[2020-04-29 19:16] VITALS: BP 110/65
[2020-04-29] MEDS: DOCUSATE SODIUM 100 MG CAPSULE PO PRN (20:42)
[2020-04-29] MEDS: PATCH REMOVAL. MC SCH (20:43)
[2020-04-29 22:29] VITALS: BP 101/58
[2020-04-30] VITALS (10 sets, daily range): BP systolic 130–165; BP diastolic 49–80
--- NOTE | 2020-04-30 04:15 | NUR ---
Pt awake in bed watching TV at change of shift. Pt is A&O x4, pleasant and cooperative with assessment and cares. Pt ate ice cream independently before bed. Pt given bed bath this AM, tolerated well and very appreciative. Pt slept soundly after bed bath. Pt stated that her SOA seemed to be improving, stating "maybe I can go back today or tomorrow!" Purewick catheter in place. Pt without fever this shift.
[2020-04-30] MEDS: IPRATRPIUM/ALBUTEROL 0.5/2.5MG 3 ML NEBU. NEB SCH ×4 (05:12→21:28)
[2020-04-30] MEDS ORDERED: methylPREDNISolone SOD SUCC PF 125 MG/2 ML VIAL. IV ONE (08:30)
[2020-04-30] MEDS: TIMOLOL 0.5% OPHTH SOLUTION 5ML BOTTLE. OU SCH ×2 (08:38→20:48)
[2020-04-30] MEDS: ALBUTEROL SULFATE 2.5 MG/3 ML NEBU. NEB PRN ×2 (08:38→19:06)
[2020-04-30] MEDS: PANTOPRAZOLE 40 MG TABLET. PO SCH (08:38)
[2020-04-30] MEDS: BRIMONIDINE 0.2% OPHTH SOLUTION 5ML BOTTLE. OU SCH ×2 (08:38→20:48)
[2020-04-30] MEDS: MULTIVITAMIN with MINERAL TABLET. PO SCH (08:38)
[2020-04-30] MEDS: CALCIUM CARB/VIT D3 500/200 TABLET PO SCH (08:38)
[2020-04-30] MEDS: GLUCOSAMINE/CHOND 500/400MG CAPSULE PO SCH (08:38)
[2020-04-30] MEDS: MONTELUKAST 10 MG TABLET. PO SCH (08:38)
[2020-04-30] MEDS: ASPIRIN CHEWABLE 81 MG TABLET. PO SCH (08:38)
[2020-04-30] MEDS: POTASSIUM CHLORIDE 20 MEQ TABLET.ER. PO SCH (08:38)
[2020-04-30] MEDS: amLODIPine BESYLATE 10 MG TABLET PO SCH (08:44)
[2020-04-30] MEDS: LIDOCAINE (700MG/PATCH) PATCH. TP SCH (09:00)
--- NOTE | 2020-04-30 09:04 | RAD ---
CHEST AP ONLY History: Reason: shortness of breath, fever / Spl. Instructions: / History: Comparison: April 28, 2020 Findings: No consolidation or pleural effusion. Normal heart size. No pneumothorax. Calcified left midlung nodule and hilar lymph nodes, likely prior granulomatous disease, unchanged. Bilateral glenohumeral DJD. Impression: 1. No acute cardiopulmonary process. Electronically signed by: Lorenzo Hernandez DO (04/30/2020 9:01 AM) [id number]
[2020-04-30] MEDS: ACETAMINOPHEN 325 MG TABLET PO PRN (13:55)
[2020-04-30] MEDS ORDERED: IOHEXOL 350 MG/ML 100 ML VIAL. IV ONE (15:15)
[2020-04-30] MEDS ORDERED: CONTRAST GIVEN. MC PRN (15:30)
--- NOTE | 2020-04-30 16:43 | RAD ---
Study: 1. CT CHEST WITH CONTRAST - PULMONARY ANGIOGRAM 2. CT ABDOMEN AND PELVIS WITH CONTRAST History: Severe hypoxic respiratory failure. Comparison: CT abdomen pelvis 05/19/2018 CT angiogram chest 05/21/2017 Technique: Helical CT of the chest performed after the administration of intravenous contrast and timed for angiographic evaluation of the pulmonary arteries per PE protocol. Coronal and sagittal 3D MIP reformations were obtained. Helical CT CT of the abdomen and pelvis was then obtained with contrast. Sagittal and coronal reformats were obtained. One or more of the following individualized dose reduction techniques were utilized for this examination: 1. Automated exposure control 2. Adjustment of the mA and/or kV according to patient size 3. Use of iterative reconstruction technique. Findings: The apices are incompletely imaged. Pulmonary Arteries: Contrast bolus is adequate. There is motion artifact, greatest in the bases. There is no acute pulmonary embolism. Heart/Systemic Vasculature: Heart is normal in size. No pericardial effusion. Thoracic aorta is normal in caliber. There is mild calcified aortic atherosclerosis. Mediastinum: Enlarged right hilar lymph node measuring 2.4 cm short axis. No mediastinal lymphadenopathy. Moderate hiatal hernia. Lungs: There is a calcified granuloma in the left upper lobe. Mild centrilobular emphysema. There is bronchial wall thickening throughout the lungs and mild bronchiectasis in the right lower lobe. No consolidation. Mild dependent atelectasis in the right lower lobe. No pleural effusion. Neck/Axilla/Body Wall: Unremarkable. No axillary lymphadenopathy. Bones: There is a compression fracture of T6 post vertebroplasty. Schmorl's node or mild superior endplate compression fracture of T8. Compression fractures of T12 and L1 post vertebroplasty. Mild rightward curvature of the thoracic spine. ABDOMEN AND PELVIS: Liver: The liver is enlarged measuring 20 cm craniocaudally, slightly increased. A hypodense lesion in the left hepatic lobe measures 8 mm and is unchanged. Gallbladder/Biliary Tree: Normal. Pancreas: There is a 4 mm hypodense lesion in the pancreatic tail (image 19, series 18). Spleen: There are calcified splenic granulomas. Adrenal Glands: Mild thickening of adrenal glands is unchanged. Kidneys/Ureters/Bladder: Kidneys are normal in size and enhance symmetrically. A 3.3 cm hypodense lesion in the mid left kidney has also since the 20, slightly greater than simple fluid, likely complex cyst. No hydronephrosis. Ureters are nondilated. Urinary bladder is normal. Reproductive Organs: Uterus not visualized. No adnexal mass. Stomach, small bowel, and colon: Hiatal hernia, as above. Stomach is otherwise normal. No small bowel obstruction. There is sigmoid diverticulosis. Questionable short segment of narrowing and segmental wall thickening in the transverse colon near the splenic flexure. Evaluation is limited by motion artifact. Appendix is normal. Vasculature: Abdominal aorta is normal in caliber. Mild calcified aortic atherosclerosis. Lymph Nodes: No lymphadenopathy. Peritoneum and retroperitoneum: No free fluid or free air. Bones: The bones are diffusely demineralized. There are compression fractures post vertebroplasty at T12, L1, and L4. Compression fractures are also seen at L3 and L5 with mild height loss. There is mild to moderate degenerative disc disease. Severe lumbar facet arthrosis. IMPRESSION: 1. No acute pulmonary embolism. 2. Mildly enlarged right hilar lymph nodes. 3. Mild centrilobular emphysema. There is an bronchiectasis and airway wall thickening in the right lower lobe, which may be seen with chronic aspiration. 4. Hepatomegaly. 5. 4 mm cystic lesion in the pancreatic tail. This is nonspecific. Small cyst or IPMN are possible. 6. 3.3 cm probable minimally complex cyst in the left kidney. 7. Questionable short segment of narrowing and wall thickening of the transverse colon near the splenic flexure. A mass is not excluded. Evaluation is limited by motion artifact. Correlate with colonoscopy if indicated. 8. Osteopenia. Multiple compression fractures. Electronically signed by: Lin Centeno MD (04/30/2020 4:40 PM) [id number]
[2020-04-30 16:44] LABS: CALCIUM 8.8 mg/dL (8.5-10.1); CREATININE 0.6 mg/dL (0.6-1.0); GFR 94.3; POTASSIUM 3.5 mmol/L (3.5-5.1)
--- NOTE | 2020-04-30 18:07 | NUR ---
Pt has refused all meals today besides drinking an ensure at lunch. pt spiked at temp of 101.4 around 1500 and was given tylenol. pt o2 saturation was decreasing this morning to 81% on NC 4L. c/o soa and tachypneic. increased to HF NC at 8L and breathing tx. after tx, pt feeling better and saturation back to low 90's. later in evening pt was tachypneic again in time for a QID breathing tx. dr vang did order a stat CT chest/abd/pelvis w/contrast and stat bmp. pt tolerated CT well and was back in room, resting. pt did refuse dinner stating she was not hungry and continued to shut eyes and rest. wcm.
[2020-04-30] MEDS: DOCUSATE SODIUM 100 MG CAPSULE PO PRN (20:47)
[2020-04-30] MEDS: methylPREDNISolone SOD SUCC PF 125 MG/2 ML VIAL. IV SCH (20:48)
[2020-04-30] MEDS: PATCH REMOVAL. MC SCH (20:48)
--- NOTE | 2020-04-30 21:15 | NUR ---
Pt lethargic in bed with low O2 sat (79-83) at change of shift. Pt c/o SOA and tachypnea noted. Atrovent PRN neb given, HOB elevated and O2 increased to 8L HF NC. Pt back up to 91-93% but O2 sat decreased again after treatment. Increased to 10L HF NC and STAT ABG ordered and drawn. Results fine so no Bipap needed. RT set up AP Neb/Mask at 50% FiO2 for comfort and mouth breathing. Pt now feeling better and saturation back to mid 90's. Pt refused HS snack but did take medications. Pt now resting comfortably. Dr Boucher notified of change in status.
[2020-04-30 21:17] LABS: BGAS PH 7.41 (7.35-7.45)
[2020-05-01] VITALS (7 sets, daily range): BP systolic 118–150; BP diastolic 65–89
--- NOTE | 2020-05-01 01:19 | PN ---
DATE: 04/30/2020 SUBJECTIVE: The patient is resting, slightly propped up in bed, clearly tachypneic, tachycardic, hypoxic despite being on 8 liters of oxygen. Her temperature is high also at 101.4. Her urine culture has grown more than 100,000 colony forming units per mL of gram-negative rods identified as Escherichia coli sensitive to oral antibiotic. However, her blood cultures are so far negative after 2 days. She did have a chest x-ray done this afternoon, which showed that there is no consolidation or pleural effusion, normal heart size, no pneumothorax, calcified left mid lung nodules and hilar lymph nodes, likely prior granulomatous disease, unchanged bilateral glenohumeral degenerative joint disease. Given the extreme hypoxia and relatively unremarkable chest x-ray, my suspicion for pulmonary embolism is extremely high. She also continued to have to spike her temperature despite treatment with antibiotic to which the bacteria is sensitive and I am wondering about perhaps pyelonephritis and therefore, I did order a CT angio of the chest, abdomen and pelvis. PHYSICAL EXAMINATION: GENERAL: When I examined her this afternoon, she looked pale, but no jaundice, cyanosis or thyromegaly. No jugular venous distention. No limb edema. VITAL SIGNS: Her heart rate was 108, blood pressure was 139/79, temperature was 101.4, respiratory rate was 26 and oxygen saturation was 88% on 8 liters of oxygen. Head, eyes, ears, nose and throat: Showed normocephalic, atraumatic. NECK: Supple. HEART: Showed normal first and second heart sounds. No gallop, rub or murmur. CHEST: Shows central trachea, equal bilateral. Equally reduced expansion, reduced air entry, vesicular sounds. She has bilateral scattered rhonchi. I could not appreciate any crepitation. ABDOMEN: Distended, soft, nontender. NEUROLOGIC: She is awake, alert, responding appropriately. All cranial nerves intact. She moves extremities without difficulty. ASSESSMENT: 1. Acute hypoxic respiratory failure. 2. Chronic obstructive pulmonary disease exacerbation. 3. Urinary tract infection with growth of more than 100,000 colony forming units per mL of gram-negative rods, sensitive to all antibiotics. 4. Protein-calorie malnutrition. 5. Pulmonary hypertension. 6. Essential hypertension. PLAN: To go ahead and her COVID test was negative. We will continue with steroids, bronchodilators, IV antibiotics. I will arrange for CT angio of the chest, abdomen and pelvis and decide on further management accordingly. LEORA ELY MD DR: NATHANAEL/mary JOB#: [id number] / [id number]
[2020-05-01] MEDS: IPRATRPIUM/ALBUTEROL 0.5/2.5MG 3 ML NEBU. NEB SCH ×4 (05:07→20:23)
--- NOTE | 2020-05-01 06:15 | NUR ---
Pt remained on AP Neb/Mask at 50% FiO2 all night, tolerated well. Pt maintained O2 sat in the [id number] 90's during shift, only dipping down to upper 80's twice when being turned/changed but quickly recovered back into 90's. Pt stated that she felt better this AM and even joke with staff during lab draw. No fever this shift. Refused bath.
[2020-05-01 06:33] LABS: HEMATOCRIT 38.9 % (36.0-47.0); HEMOGLOBIN 12.7 g/dL (12.0-15.5); RED BLOOD COUNT 4.11 x10^6/uL (3.50-5.40); RED CELL DISTRIBUTION WIDTH 14.2 % (11.5-14.5); WHITE BLOOD COUNT 7.3 x10^3/uL (4.0-11.0)
[2020-05-01 07:10] LABS: ALBUMIN 3.2 g/dL (3.4-5.0); ALBUMIN/GLOBULIN RATIO 0.7 (1.0-1.7); CALCIUM 9.2 mg/dL (8.5-10.1); CREATININE 0.6 mg/dL (0.6-1.0); GFR 94.3; POTASSIUM 3.9 mmol/L (3.5-5.1); TOTAL BILIRUBIN 0.2 mg/dL (0.2-1.0); TOTAL PROTEIN 7.6 g/dL (6.4-8.2)
[2020-05-01] MEDS: LIDOCAINE (700MG/PATCH) PATCH. TP SCH (09:00)
[2020-05-01] MEDS: MULTIVITAMIN with MINERAL TABLET. PO SCH (09:34)
[2020-05-01] MEDS: ASPIRIN CHEWABLE 81 MG TABLET. PO SCH (09:34)
[2020-05-01] MEDS: MONTELUKAST 10 MG TABLET. PO SCH (09:34)
[2020-05-01] MEDS: PANTOPRAZOLE 40 MG TABLET. PO SCH (09:34)
[2020-05-01] MEDS: amLODIPine BESYLATE 10 MG TABLET PO SCH (09:34)
[2020-05-01] MEDS: CALCIUM CARB/VIT D3 500/200 TABLET PO SCH (09:34)
[2020-05-01] MEDS: POTASSIUM CHLORIDE 20 MEQ TABLET.ER. PO SCH (09:35)
[2020-05-01] MEDS: methylPREDNISolone SOD SUCC PF 125 MG/2 ML VIAL. IV SCH ×2 (09:35→20:45)
[2020-05-01] MEDS: BRIMONIDINE 0.2% OPHTH SOLUTION 5ML BOTTLE. OU SCH ×2 (09:36→20:45)
[2020-05-01] MEDS: TIMOLOL 0.5% OPHTH SOLUTION 5ML BOTTLE. OU SCH ×2 (09:36→20:45)
[2020-05-01] MEDS: GLUCOSAMINE/CHOND 500/400MG CAPSULE PO SCH (09:36)
[2020-05-01] MEDS: LACTOBACILLUS RHAMNOSUS GG 1 CAPSULE. PO SCH ×2 (09:38→20:45)
--- NOTE | 2020-05-01 18:35 | NUR ---
patient had a great day today. maintained oxygen saturation above 90% with 10L HFNC oxygen. Patient also received a bed bath, linen and gown change. She also ate all 3 meals today including catfish brought by a family member. Patient did get up to bedside commode x1 assist with gait belt and walker, and had a BM. Then sat in the chair all day watching tv and ate dinner. Got patient back into bed comfortable. Patient stated "that feels so good to be back in bed... i was sitting in the chair all day today... it was nice"... [facility] will not take patient when on more than 5L of O2. patient and family is okay with POC.
[2020-05-01] MEDS: PATCH REMOVAL. MC SCH (20:46)
[2020-05-02 03:13] VITALS: BP 117/61
--- NOTE | 2020-05-02 03:43 | PN ---
DATE: 05/01/2020 SUBJECTIVE: The patient is sitting in her recliner comfortably, in no apparent respiratory distress. She is maintaining her oxygen saturation at 92% on 10 liters of oxygen by nasal cannula. The patient herself feels better. She continued to have cough, but she is afebrile and is not as tachypneic or diaphoretic as of yesterday. We did actually a CT scan of the chest, abdomen and pelvis and this showed that she has no pulmonary embolism. She has mildly enlarged right hilar lymph node. She has mild centrilobular emphysema with bronchiectasis and airway wall thickening of the right lower lobe, which may be seen with chronic aspiration. Does have hepatomegaly, 4 mm cystic lesion in the pancreatic tail, that is nonspecific. She has 3.3 cm probable minimally complex cyst in the left kidney and questionable short segment of narrowing and wall thickening of the transverse colon near the splenic flexure, a mass is not excluded. Evaluation is limited by motion artifact. She has also osteopenia and multiple compression fractures. The patient is now on steroids, we will continue at ____ mg IV twice a day. She is also on IV ceftriaxone and Zithromax. PHYSICAL EXAMINATION: GENERAL: When I examined her this afternoon, she looked pale, somewhat cachectic, but no jaundice, cyanosis or thyromegaly. No jugular venous distention. No lower limb edema. VITAL SIGNS: Her heart rate was 107, blood pressure 118/81, temperature was 97.7, respiratory rate 20, and oxygen saturation was 92% on 10 liters of oxygen. HEAD, EYES, EARS, NOSE, AND THROAT: Showed normocephalic, atraumatic. NECK: Supple. HEART: Showed normal first and second heart sounds. No gallop or murmur. CHEST: Shows central trachea, equally reduced expansion, reduced air entry, vesicular breath sounds. A very few scattered rhonchi. I could not appreciate any crepitation. ABDOMEN: Slightly distended, soft, nontender. NEUROLOGIC: She is grossly intact. Her intake over the last 24 hours was 800, output was 700. LABORATORY DATA: Her white cell count was 7300, hemoglobin 12.7, hematocrit 39, MCV 95, and platelet count 262,000. Her chemistry showed a serum sodium 141, potassium 3.9, chloride 100, bicarbonate 35, anion gap of 6, BUN 22, creatinine 0.6, estimated GFR was 94 mL per minute. Her glucose 146, calcium was 9.2. Total bilirubin, AST, ALT, alkaline phosphatase were normal. Total protein 7.6, albumin was 3.2. ASSESSMENT: 1. Acute on chronic hypoxic respiratory failure. 2. Chronic obstructive pulmonary disease exacerbation. 3. Urinary tract infection with growth of more than 100,000 colony forming units per mL of gram-negative rods, sensitive to all antibiotics. 4. She has protein-calorie malnutrition. 5. Pulmonary hypertension. 6. Essential hypertension. 7. Her coronavirus by PCR was negative. PLAN: Obviously to continue with IV Solu-Medrol. Continue with nebulized albuterol and Atrovent. Continue with IV ceftriaxone. We will consult Physical and Occupational Therapy tomorrow and once her oxygen requirement drops down significantly, she can be discharged to [facility]. LEORA ELY MD DR: NATHANAEL/mary JOB#: [id number] / [id number]
[2020-05-02] MEDS: IPRATRPIUM/ALBUTEROL 0.5/2.5MG 3 ML NEBU. NEB SCH ×4 (05:17→23:49)
[2020-05-02 06:21] LABS: HEMOGLOBIN 12.1 g/dL (12.0-15.5); RED BLOOD COUNT 3.94 x10^6/uL (3.50-5.40); RED CELL DISTRIBUTION WIDTH 14.3 % (11.5-14.5); WHITE BLOOD COUNT 8.1 x10^3/uL (4.0-11.0)
[2020-05-02 06:42] LABS: CALCIUM 8.9 mg/dL (8.5-10.1); CREATININE 0.6 mg/dL (0.6-1.0); GFR 94.3; POTASSIUM 4.1 mmol/L (3.5-5.1)
[2020-05-02] MEDS ORDERED: ALENDRONATE SODIUM 35 MG TABLET PO SCH (07:00)
[2020-05-02] MEDS: MULTIVITAMIN with MINERAL TABLET. PO SCH (08:41)
[2020-05-02] MEDS: PANTOPRAZOLE 40 MG TABLET. PO SCH (08:41)
[2020-05-02] MEDS: CALCIUM CARB/VIT D3 500/200 TABLET PO SCH (08:41)
[2020-05-02] MEDS: DOCUSATE SODIUM 100 MG CAPSULE PO PRN (08:41)
[2020-05-02] MEDS: GLUCOSAMINE/CHOND 500/400MG CAPSULE PO SCH (08:41)
[2020-05-02] MEDS: MONTELUKAST 10 MG TABLET. PO SCH (08:42)
[2020-05-02] MEDS: TIMOLOL 0.5% OPHTH SOLUTION 5ML BOTTLE. OU SCH ×2 (08:42→19:50)
[2020-05-02] MEDS: POTASSIUM CHLORIDE 20 MEQ TABLET.ER. PO SCH (08:42)
[2020-05-02] MEDS: LACTOBACILLUS RHAMNOSUS GG 1 CAPSULE. PO SCH ×2 (08:42→19:50)
[2020-05-02] MEDS: ASPIRIN CHEWABLE 81 MG TABLET. PO SCH (08:42)
[2020-05-02] MEDS: BRIMONIDINE 0.2% OPHTH SOLUTION 5ML BOTTLE. OU SCH ×2 (08:42→19:50)
[2020-05-02] MEDS: amLODIPine BESYLATE 10 MG TABLET PO SCH (08:42)
[2020-05-02] MEDS: methylPREDNISolone SOD SUCC PF 125 MG/2 ML VIAL. IV SCH ×2 (08:42→19:50)
[2020-05-02] MEDS: LIDOCAINE (700MG/PATCH) PATCH. TP SCH (08:43)
[2020-05-02] MEDS ORDERED: ALENDRONATE SODIUM 35 MG TABLET PO ONE (09:00)
--- NOTE | 2020-05-02 10:02 | NUR ---
0930 Spoke with Juliann from [place], she is awaiting discharge date and time and will submit paperwork for bed placement.
[2020-05-02 10:07] VITALS: BP 148/80
[2020-05-02 15:16] VITALS: BP 142/81
[2020-05-02] MEDS: ENOXAPARIN 30 MG/0.3 ML SYRINGE. SQ SCH (15:49)
[2020-05-02 19:55] VITALS: BP 142/95
--- NOTE | 2020-05-02 20:18 | PN ---
DATE: 05/02/2020 SUBJECTIVE: The patient is sitting in her recliner, in no apparent respiratory distress. She is feeling generally better. Unfortunately, her oxygen requirement continued to be high and they have been 7 liters, her oxygen drops below 90. PHYSICAL EXAMINATION: GENERAL: When I examined her this afternoon, she looked pale, somewhat cachectic, but no jaundice, cyanosis or thyromegaly. No jugular venous distention. No lower limb edema. VITAL SIGNS: Her heart rate was 86, blood pressure was 148/80, temperature was 96.6, respiratory rate was 18 and oxygen saturation was 91% on 8 liters of oxygen. HEAD, EYES, EARS, NOSE AND THROAT: Normocephalic, atraumatic. NECK: Supple. CARDIAC: Normal first and second heart sounds. No gallop or murmur. CHEST: Shows central trachea, equally reduced expansion, reduced air entry, vesicular breath sounds. I could not really appreciate any crepitation or rhonchi. ABDOMEN: Scaphoid, soft, nontender. NEUROLOGIC: She was grossly intact. Her intake was 300, output was 825. LABORATORY DATA: As of this morning, her white cell count was 8100, hemoglobin 12, hematocrit 37, MCV 94 and platelet count of 157,000. Her serum sodium was 138, potassium 4.1, chloride 100, bicarbonate 33, anion gap of 5, BUN 33, creatinine 0.6, estimated GFR is 94 mL per minute. Her glucose 141, calcium was 8.9. ASSESSMENT: 1. Acute on chronic hypoxic respiratory failure. 2. Chronic obstructive pulmonary disease exacerbation. 3. Urinary tract infection with growth of more than 100,000 colony forming units per mL of gram-negative rods, sensitive to all antibiotics. 4. She has protein-calorie malnutrition. 5. Pulmonary hypertension. 6. Essential hypertension. 7. Her coronavirus by PCR was negative. PLAN: To continue with IV Solu-Medrol. Continue with IV antibiotic. We will obviously attempt to wean her oxygen down to the lowest possible evaluation. She was only on 3 liters while at [facility]. I did CT angio of the chest and showed that the patient was negative for acute pulmonary embolism. She does have mildly enlarged hilar lymph nodes and mild central lobular emphysema. There is also bronchiectasis and airway wall thickening of the right lower lobe, which may simply be seen with chronic aspiration. I will add also Lovenox for DVT prophylaxis. LEORA ELY MD DR: NATHANAEL/mary JOB#: [id number] / [id number]
[2020-05-02] MEDS: PATCH REMOVAL. MC SCH (21:00)
--- NOTE | 2020-05-03 01:04 | NUR ---
Decreased oxygen from 6 Liters to 5 liters per nasal cannula. Call light at bedside. Will continue to monitor.
--- NOTE | 2020-05-03 05:28 | NUR ---
Pt has tolerated 5 liters of oxygen on the high flow nasal cannula. This nurse tried to decrease pt to 4 liters; however, pt did not tolerate it well, and pt was working hard to breathe. Increased to 6 liters of oxygen per high flow nasal cannula to help pt breathe easier, then decreased to 5 liters per high flow nasal cannula. Pt tolerates well. Call light at bedside. Will continue to monitor.
[2020-05-03 07:17] VITALS: BP 121/69
[2020-05-03] MEDS: PANTOPRAZOLE 40 MG TABLET. PO SCH (07:19)
[2020-05-03] MEDS: IPRATRPIUM/ALBUTEROL 0.5/2.5MG 3 ML NEBU. NEB SCH ×4 (08:00→20:01)
[2020-05-03] MEDS: GLUCOSAMINE/CHOND 500/400MG CAPSULE PO SCH (08:45)
[2020-05-03] MEDS: TIMOLOL 0.5% OPHTH SOLUTION 5ML BOTTLE. OU SCH ×2 (08:45→19:42)
[2020-05-03] MEDS: LIDOCAINE (700MG/PATCH) PATCH. TP SCH ×2 (08:45→09:00)
[2020-05-03] MEDS: BRIMONIDINE 0.2% OPHTH SOLUTION 5ML BOTTLE. OU SCH ×2 (08:45→19:42)
[2020-05-03] MEDS: POTASSIUM CHLORIDE 20 MEQ TABLET.ER. PO SCH (08:46)
[2020-05-03] MEDS: CALCIUM CARB/VIT D3 500/200 TABLET PO SCH (08:46)
[2020-05-03] MEDS: MULTIVITAMIN with MINERAL TABLET. PO SCH (08:46)
[2020-05-03] MEDS: MONTELUKAST 10 MG TABLET. PO SCH (08:46)
[2020-05-03] MEDS: methylPREDNISolone SOD SUCC PF 125 MG/2 ML VIAL. IV SCH ×2 (08:46→19:41)
[2020-05-03] MEDS: amLODIPine BESYLATE 10 MG TABLET PO SCH (08:46)
[2020-05-03] MEDS: ASPIRIN CHEWABLE 81 MG TABLET. PO SCH (08:47)
[2020-05-03] MEDS: LACTOBACILLUS RHAMNOSUS GG 1 CAPSULE. PO SCH ×2 (08:47→19:41)
[2020-05-03 10:45] VITALS: BP 146/80
--- NOTE | 2020-05-03 12:19 | PN ---
DATE: 05/03/2020 SUBJECTIVE: The patient is resting, slightly propped up in bed, in no apparent distress. She is actually feeling much improved. Her oxygen is down to 5 liters, maintaining her oxygen saturation at 92%. PHYSICAL EXAMINATION: GENERAL: When I examined her, she was pale, cachectic, but no jaundice, cyanosis or thyromegaly. No jugular venous distention. No lower limb edema. VITAL SIGNS: Her heart rate was 78, blood pressure 146/80, temperature 97.4, respiratory rate 23, and oxygen saturation was 92% on 5 liters of oxygen. HEAD, EYES, EARS, NOSE AND THROAT: Normocephalic, atraumatic. NECK: Supple. HEART: Showed normal first and second heart sounds. No gallop, rub or murmur. CHEST: Clear to auscultation. No crepitation or rhonchi. ABDOMEN: Distended, soft, nontender. NEUROLOGIC: She is awake, alert, responding appropriately. All cranial nerves intact. She moves extremities without difficulty, although she has marked muscle wasting. Her intake over the last 24 hours was 890, no output was recorded. LABORATORY DATA: As of this morning, her white cell count was 8000, hemoglobin 12, hematocrit 37, MCV 94 and platelet count of 157,000. Her serum sodium was 138, potassium 4.1, chloride 100, bicarbonate 33, anion gap of 5, BUN 33, creatinine 0.6, estimated GFR was 94 mL per minute. Her glucose 141 and calcium was 8.9. Total protein was 7.6, albumin 3.2. ASSESSMENT: 1. Acute on chronic hypoxic respiratory failure. 2. Chronic obstructive pulmonary disease exacerbation. 3. Urinary tract infection with growth of more than 100,000 colony forming units per mL of gram-negative rods identified as Escherichia coli sensitive to all antibiotics. 4. She has protein-calorie malnutrition. 5. Pulmonary hypertension. 6. Essential hypertension. 7. Her coronavirus by PCR was negative. PLAN: To continue with IV Solu-Medrol. Continue with antibiotic. Continue to titrate oxygen down. CT angio of the chest showed no evidence of acute pulmonary embolism. She does have mildly enlarged hilar lymph nodes and mild centrilobular emphysema. She also has bronchiectasis and airway wall thickening of the right lower lobe, which may be simply due to chronic aspiration. She is now also DVT prophylaxis in the form of Lovenox. LEORA ELY MD DR: NATHANAEL/mary JOB#: [id number] / [id number]
[2020-05-03] MEDS: ENOXAPARIN 30 MG/0.3 ML SYRINGE. SQ SCH (14:14)
[2020-05-03 15:07] VITALS: BP 162/72
[2020-05-03 20:00] VITALS: BP 156/77
[2020-05-03] MEDS: PATCH REMOVAL. MC SCH (20:36)
--- NOTE | 2020-05-03 21:37 | NUR ---
Pt does not want to be turned or have pillows under her legs. Call light at bedside. Will continue to monitor.
[2020-05-04 00:01] VITALS: BP 133/60
[2020-05-04] MEDS: IPRATRPIUM/ALBUTEROL 0.5/2.5MG 3 ML NEBU. NEB SCH ×4 (05:45→19:52)
[2020-05-04 06:41] LABS: HEMATOCRIT 37.6 % (36.0-47.0); HEMOGLOBIN 12.3 g/dL (12.0-15.5); RED BLOOD COUNT 4.02 x10^6/uL (3.50-5.40); RED CELL DISTRIBUTION WIDTH 13.9 % (11.5-14.5)
[2020-05-04 06:50] LABS: ALBUMIN 2.8 g/dL (3.4-5.0); ALBUMIN/GLOBULIN RATIO 0.8 (1.0-1.7); CALCIUM 8.3 mg/dL (8.5-10.1); CREATININE 0.5 mg/dL (0.6-1.0); GFR 116.4; TOTAL BILIRUBIN 0.2 mg/dL (0.2-1.0); TOTAL PROTEIN 6.4 g/dL (6.4-8.2)
[2020-05-04] MEDS: TIMOLOL 0.5% OPHTH SOLUTION 5ML BOTTLE. OU SCH ×2 (06:53→20:43)
[2020-05-04] MEDS: BRIMONIDINE 0.2% OPHTH SOLUTION 5ML BOTTLE. OU SCH ×2 (06:53→20:43)
[2020-05-04] MEDS: LIDOCAINE (700MG/PATCH) PATCH. TP SCH (07:11)
[2020-05-04] MEDS: PANTOPRAZOLE 40 MG TABLET. PO SCH (07:30)
[2020-05-04 07:59] VITALS: BP 175/85
[2020-05-04] MEDS: ASPIRIN CHEWABLE 81 MG TABLET. PO SCH (08:59)
[2020-05-04] MEDS: MONTELUKAST 10 MG TABLET. PO SCH (08:59)
[2020-05-04] MEDS: methylPREDNISolone SOD SUCC PF 125 MG/2 ML VIAL. IV SCH ×2 (08:59→20:43)
[2020-05-04] MEDS: MULTIVITAMIN with MINERAL TABLET. PO SCH (09:00)
[2020-05-04] MEDS: amLODIPine BESYLATE 10 MG TABLET PO SCH (09:00)
[2020-05-04] MEDS: LACTOBACILLUS RHAMNOSUS GG 1 CAPSULE. PO SCH ×2 (09:00→20:43)
[2020-05-04] MEDS: CALCIUM CARB/VIT D3 500/200 TABLET PO SCH (09:00)
[2020-05-04] MEDS: GLUCOSAMINE/CHOND 500/400MG CAPSULE PO SCH (09:01)
[2020-05-04] MEDS: POTASSIUM CHLORIDE 20 MEQ TABLET.ER. PO SCH (09:01)
[2020-05-04 11:12] VITALS: BP 145/73
[2020-05-04] MEDS: ENOXAPARIN 30 MG/0.3 ML SYRINGE. SQ SCH (14:49)
[2020-05-04 18:14] VITALS: BP 150/70
--- NOTE | 2020-05-04 18:43 | PN ---
DATE: 05/04/2020 SUBJECTIVE: The patient is sitting comfortably in her recliner, in no apparent respiratory distress. She is awake, alert. She denied any complaint. Her oxygen requirement is coming down steadily. She is now on 3.5 liters, maintaining her oxygen saturation about 89%-90%. PHYSICAL EXAMINATION: GENERAL: When I examined her, she was pale, cachectic, but no jaundice, cyanosis or thyromegaly. No jugular venous distention. No limb edema. VITAL SIGNS: Her heart rate was 81, blood pressure was 145/73, temperature was 97.4, respiratory rate was 13, and oxygen saturation was 91% on 3.5 liters of oxygen. HEAD, EYES, EARS, NOSE, AND THROAT: Showed normocephalic, atraumatic. NECK: Supple. CARDIAC: Normal first and second heart sounds. No gallop, rub or murmur. CHEST: Shows central trachea, marked reduced chest expansion, reduced air entry, vesicular sounds. I could not really appreciate any crepitation or rhonchi. ABDOMEN: Scaphoid, soft, nontender. NEUROLOGIC: She is grossly intact. Her intake was 960 and output was 750. LABORATORY DATA: As of this morning, her white cell count was 6000, hemoglobin 12, hematocrit 38, MCV 94 and platelet count of 157,000. Her chemistry showed a serum sodium 140, potassium 4, chloride 101, bicarbonate 35, anion gap of 4, BUN 19, creatinine 0.5, estimated GFR was 116 mL per minute. Her glucose 118, calcium was 8.3. Total bilirubin, AST, ALT, alkaline phosphatase were normal. Total protein 6.4, albumin was 2.8. Her urine culture has grown more than 100,000 colony forming units per gram-negative rods identified as Escherichia coli sensitive to oral antibiotics. However, her blood cultures are so far negative. ASSESSMENT: 1. Acute on chronic hypoxic respiratory failure. 2. Chronic obstructive pulmonary disease exacerbation. 3. Urinary tract infection with growth of more than 100,000 colony forming units per mL of gram-negative rods identified as Escherichia coli sensitive to oral antibiotics. 4. She has protein-calorie malnutrition. 5. Pulmonary hypertension. 6. Essential hypertension. 7. Her coronavirus by PCR was negative. PLAN: To continue with IV Solu-Medrol. Continue with antibiotic. Continue to titrate her oxygen down. Her CT angio of the chest showed no evidence of acute pulmonary embolism. She does have mildly enlarged hilar lymph nodes and mild centrilobular emphysema. She also has bronchiectasis and airway wall thickening of the right lower lobe, which may be simply due to chronic aspiration. She is now also on DVT prophylaxis for Lovenox. If she remains stable by tomorrow, she can be discharged back to [facility]. LEORA ELY MD DR: NATHANAEL/mary JOB#: [id number] / [id number]
--- NOTE | 2020-05-04 19:20 | NUR ---
Pt had a good day, she has been up to chair for most of the afternoon. Her o2 requirements have maintained today to be 3-4L NC. Spoke with son, Valentin and daughter, Ashley, updated on potential plans to dc tomorrow. Answered all questions. Patient was able to speak with them as well.
[2020-05-04 20:00] VITALS: BP 164/91
[2020-05-04] MEDS: PATCH REMOVAL. MC SCH (21:00)
[2020-05-05] MEDS: IPRATRPIUM/ALBUTEROL 0.5/2.5MG 3 ML NEBU. NEB SCH ×4 (04:33→20:00)
[2020-05-05 06:00] VITALS: BP 154/74
[2020-05-05] MEDS: LACTOBACILLUS RHAMNOSUS GG 1 CAPSULE. PO SCH ×2 (08:09→20:35)
[2020-05-05] MEDS: ASPIRIN CHEWABLE 81 MG TABLET. PO SCH (08:09)
[2020-05-05] MEDS: POTASSIUM CHLORIDE 20 MEQ TABLET.ER. PO SCH (08:10)
[2020-05-05] MEDS: amLODIPine BESYLATE 10 MG TABLET PO SCH (08:10)
[2020-05-05] MEDS: CALCIUM CARB/VIT D3 500/200 TABLET PO SCH (08:10)
[2020-05-05] MEDS: PANTOPRAZOLE 40 MG TABLET. PO SCH (08:10)
[2020-05-05] MEDS: MULTIVITAMIN with MINERAL TABLET. PO SCH (08:10)
[2020-05-05] MEDS: MONTELUKAST 10 MG TABLET. PO SCH (08:10)
[2020-05-05] MEDS: methylPREDNISolone SOD SUCC PF 125 MG/2 ML VIAL. IV SCH ×2 (08:11→20:35)
[2020-05-05] MEDS: LIDOCAINE (700MG/PATCH) PATCH. TP SCH (09:20)
[2020-05-05] MEDS: TIMOLOL 0.5% OPHTH SOLUTION 5ML BOTTLE. OU SCH ×2 (09:22→20:35)
[2020-05-05] MEDS: GLUCOSAMINE/CHOND 500/400MG CAPSULE PO SCH (09:22)
[2020-05-05] MEDS: BRIMONIDINE 0.2% OPHTH SOLUTION 5ML BOTTLE. OU SCH ×2 (09:22→20:35)
[2020-05-05 11:19] VITALS: BP 183/73
[2020-05-05] MEDS: ENOXAPARIN 30 MG/0.3 ML SYRINGE. SQ SCH (14:08)
[2020-05-05] MEDS ORDERED: CEFD300C PO (15:15)
[2020-05-05 15:59] VITALS: BP 166/88
--- NOTE | 2020-05-05 18:00 | NUR ---
Pt had a good day today. O2 requirements at 4L NC. pt refused PT/OT today stating "well i wont be here much longer"... also refused to sit in chair when offered few times throughout the day for meals. POC is for pt to D/C to [facility] tomorrow. Spoke with daughter Anne about POC and she would like to know when she will be going to [place] so she can bring some of pt belongings.
[2020-05-05 19:17] VITALS: BP 157/75
[2020-05-05] MEDS: PATCH REMOVAL. MC SCH (20:35)
[2020-05-05 23:00] VITALS: BP 141/91
[2020-05-06] MEDS: IPRATRPIUM/ALBUTEROL 0.5/2.5MG 3 ML NEBU. NEB SCH ×2 (04:49→09:15)
--- NOTE | 2020-05-06 05:53 | NUR ---
Shift Note: pt a/o x4, VSS (pt now on 3 liters NC which is her baseline, pt continues to desat w/activity however she rebounds back to >92% within 3 minutes of rest), pt had no c/o pain or n/v throughout the night, pt continues to be incontinent of urine, pt bathed w/hair washed and dentures cleaned this am, pt anticipating discharge to [facility] today.
[2020-05-06 07:40] VITALS: BP 145/91
[2020-05-06] MEDS: ASPIRIN CHEWABLE 81 MG TABLET. PO SCH (08:16)
[2020-05-06] MEDS: LACTOBACILLUS RHAMNOSUS GG 1 CAPSULE. PO SCH (08:16)
[2020-05-06] MEDS: GLUCOSAMINE/CHOND 500/400MG CAPSULE PO SCH (08:16)
[2020-05-06] MEDS: PANTOPRAZOLE 40 MG TABLET. PO SCH (08:16)
[2020-05-06] MEDS: CALCIUM CARB/VIT D3 500/200 TABLET PO SCH (08:16)
[2020-05-06] MEDS: POTASSIUM CHLORIDE 20 MEQ TABLET.ER. PO SCH (08:16)
[2020-05-06] MEDS: MULTIVITAMIN with MINERAL TABLET. PO SCH (08:16)
[2020-05-06] MEDS: MONTELUKAST 10 MG TABLET. PO SCH (08:17)
[2020-05-06] MEDS: amLODIPine BESYLATE 10 MG TABLET PO SCH (08:17)
[2020-05-06] MEDS: BRIMONIDINE 0.2% OPHTH SOLUTION 5ML BOTTLE. OU SCH (08:18)
[2020-05-06] MEDS: methylPREDNISolone SOD SUCC PF 125 MG/2 ML VIAL. IV SCH (08:18)
[2020-05-06] MEDS: TIMOLOL 0.5% OPHTH SOLUTION 5ML BOTTLE. OU SCH (08:18)
[2020-05-06] MEDS: LIDOCAINE (700MG/PATCH) PATCH. TP SCH (08:47)
[2020-05-06 11:00] VITALS: BP 153/93
--- NOTE | 2020-05-06 14:43 | DS ---
DATE OF DISCHARGE: 05/06/2020 HOSPITAL COURSE: The patient is an 89-year-old female patient, a resident at [facility], who was admitted with worsening shortness of breath and [id number] hypoxic respiratory failure, COPD exacerbation. She was also found to have urinary tract infection, was treated with IV antibiotic in the form of ceftriaxone together with tapering course of steroids, bronchodilators together with Singulair and her oxygen requirement symptom gradually improved. PHYSICAL EXAMINATION: GENERAL: When I saw her today, she looked well and was clearly in no apparent respiratory distress. No pallor, jaundice, cyanosis or thyromegaly. No jugular venous distention. No lower limb edema. VITAL SIGNS: Her heart rate was 78, blood pressure 153/93, temperature 97.5, respiratory rate was 22 and oxygen saturation was 92% on 3 liters of oxygen. HEAD, EYES, EARS, NOSE AND THROAT: Showed normocephalic, atraumatic. NECK: Supple. CARDIAC: Normal first and second heart sounds. No gallop, rub or murmur. CHEST: Showed central trachea, equally reduced expansion, reduced air entry, vesicular sounds, very few scattered rhonchi that have much improved. I could not appreciate any crepitation. ABDOMEN: Distended, soft, nontender. NEUROLOGIC: She is awake, alert, responding appropriately. All cranial nerves intact. She moves extremities without difficulty. She ambulates with a walker. Her intake over the last 24 hours was 1250, no output was recorded. LABORATORY DATA: Her most recent lab work showed a white cell count 6000, hemoglobin 12, hematocrit 37, MCV 94 and platelet count of 157,000. Serum sodium was 140, potassium 4, chloride 101, bicarbonate 35, anion gap of 4, BUN 18, creatinine 0.5, estimated GFR was 169 mL per minute. Her glucose 118, calcium was 8.3. Total bilirubin, AST, ALT, alkaline phosphatase were normal. Total protein 6.4, albumin was 2.8. Urinalysis showed that she was positive for nitrite, and her urine culture and sensitivity showed growth of more than 100,000 colony forming units per mL of gram-negative rods, sensitive to oral antibiotic. The patient's blood cultures were negative after 5 days. DISCHARGE MEDICATIONS: She was discharged back to [facility] to continue the process of rehabilitation, to continue on cefdinir 300 mg twice a day for 5 more days. Continue with tapering course of steroids in the form of prednisone 40 mg once a day for 3 days, 30 mg once a day for 3 days, 20 mg once a day for 3 days and then 10 mg once a day for 3 days. Tylenol 650 mg every 6 hours, albuterol sulfate 2 puffs every 6 hours, and alendronate sodium for Fosamax 70 mg every Tuesday for osteoporosis, amlodipine besylate 10 mg once a day, aspirin 81 mg once a day, brimonidine tartrate for Combigan eyedrops 1 drop to both eyes twice a day, calcium carbonate with vitamin D one tablet once a day, cranberry fruit 450 mg daily, Colace 100 mg every 12 hours as needed, glucosamine chondroitin sulfate 1 tablet once a day, hydrocodone/APAP 5/325 one tablet every 6 hours, ipratropium bromide 0.2 mg 4 times a day, lidocaine patch applied topically on for 12 hours and off for 12 hours, loperamide 2 mg 3 times a day, Singulair 10 mg at bedtime, multivitamin with mineral 1 tablet once a day, omeprazole 20 mg once a day, ondansetron 4 mg every 8 hours, polyethylene glycol 17 grams daily, potassium chloride 20 mEq daily, Serevent Diskus 50 mcg inhalation daily. FINAL DISCHARGE DIAGNOSES: 1. Acute on chronic hypoxic respiratory failure. 2. Chronic obstructive pulmonary disease exacerbation. 3. Urinary tract infection with growth of more than 100,000 colony forming units per mL of gram-negative rods identified as Escherichia coli sensitive to oral antibiotic. 4. Protein-calorie malnutrition. 5. Pulmonary hypertension. 6. Essential hypertension. 7. Her coronavirus by PCR was negative. LEORA ELY MD DR: NATHANAEL/mary JOB#: [id number] / [id number]
--- NOTE | 2020-05-06 15:04 | NUR ---
NURSING NOTE: DISCHARGE PT DISCHARGED AT 1500 BY . PT PICKED UP BY [facility]. REPORT GIVEN TO [facility]. PACKET SENT WITH PT. NO COMPLICATIONS. ANTONI TAYLOR
== END 2020-05-06 15:00 | DRG 189 ==
LOC: ER 12:34 → ICU 15:50 → ER 17:52
PROVIDERS: ADMIT Hospitalist; ATTEND Internal Medicine
DX: J96.21 Acute and chronic respiratory failure with hypoxia (principal); N39.0 Urinary tract infection, site not specified; E46 Unspecified protein-calorie malnutrition; B96.20 Unspecified Escherichia coli [E. coli] as the cause of diseases classified elsewhere; Z68.22 Body mass index [BMI] 22.0-22.9, adult; F41.1 Generalized anxiety disorder; I10 Essential (primary) hypertension; I27.20 Pulmonary hypertension, unspecified; J43.2 Centrilobular emphysema; M19.019 Primary osteoarthritis, unspecified shoulder; M81.0 Age-related osteoporosis without current pathological fracture; Z87.891 Personal history of nicotine dependence; Z90.49 Acquired absence of other specified parts of digestive tract; Z99.81 Dependence on supplemental oxygen; F41.9 Anxiety disorder, unspecified; H40.9 Unspecified glaucoma; K21.9 Gastro-esophageal reflux disease without esophagitis; Z87.01 Personal history of pneumonia (recurrent); Z91.041 Radiographic dye allergy status; Z20.828 Contact with and (suspected) exposure to other viral communicable diseases
CPT/HCPCS: 36415; 71045; 71275; 74177; 80048; 80053; 81001; 82803; 83605; 83880; 84484; 85025; 85027; 87040; 87077; 87086; 87186; 93005; 94640; 96365; J0696; J1650; J2930; J7644; P9612; Q9967; U0003; 97110; 97116; 97530; 99284-25; J7613